=== PATIENT | female | born 1990 | race Hispanic/Latino ===

== ENCOUNTER → 2017-12-10 16:11 | Outpatient (CLI) | payer OTHER, MEDICAID, SELFPAY ==
[2017-12-10 17:47] LABS: Rubella Antibody IgG 4.7 IU/mL (>15)
[2017-12-14 15:24] LABS: Hepatitis B Surf Ab Qualitativ Nonreactive (Nonreactive)
[2017-12-17 13:57] LABS: Rapid Plasma Reagin NON-REACTIVE
== END ==
PROVIDERS: Family Provider Family Medicine; PCP Family Medicine; Visit Provider Specialist
DX: Z34.93 Encounter for supervision of normal pregnancy, unspecified, third trimester (principal)
CPT/HCPCS: 36415; 86592; 86706; 86762

== ENCOUNTER 2017-12-17 18:43 | Outpatient (CLI) | payer OTHER, MEDICAID, SELFPAY ==
[2017-12-17 19:50] LABS: Bacteria Urine None Seen
[2017-12-17 19:59] LABS: Appearance Urine UA CLEAR; Bilirubin Urine UA NEGATIVE (NEGATIVE); Color Urine UA YELLOW; Culture Indicated Urine Cult Not Indicated; Glucose Urine UA NEGATIVE (Normal); Ketones Urine UA TRACE (NEGATIVE); Leukocyte Esterase Urine UA NEGATIVE (NEGATIVE); Nitrite Urine UA Negative (Negative); Occult Blood Urine UA NEGATIVE (Negative); Protein Urine UA TRACE (Negative); RBC Urine 0-1/HPF (0-5/HPF); Urobilinogen Urine UA 0.2 E.U./dL (0.2); WBC Urine 0-1/HPF (0-5/HPF)
--- NOTE | 2017-12-18 11:25 | PM.OBTRLD ---
Visit Information Visit Information Date of evaluation: 12/17/17 Primary OB Provider: Ying Cagle Reason for Evaluation: Yes pre-term labor Vital Signs Vital Signs: Blood pressure 98/46, pulse of 82 PFSH Medical History Umbilical hernia (Chronic) Family History Grandfather Cancer Grandmother Cancer Mother Age: 59 Diabetes mellitus Grandmother Cancer of kidney Review of Systems Review of Systems Patient comes in complaining of pelvic pressure and discomfort lower abdomen. She has had good movement. No rupture of membranes. She does not feel like she is having contractions. No fevers. All systems reviewed & are unremarkable except as noted in HPI and below Exam Narrative Exam Narrative: Patient's abdomen is soft nontender. NST is reactive with baseline 130 category 1 tracing. No contractions are noted. Cervix is long, closed, and high. Objective Labs Labs: Laboratory Results - last 24 hr 12/17/17 19:40 Urine Color Yellow Urine Appearance Clear Urine pH 6.0 Ur Specific [place] 1.020 Urine Protein Trace H Urine Glucose (UA) Negative Urine Ketones Trace H Urine Occult Blood Negative Urine Nitrate Negative Urine Bilirubin Negative Urine Urobilinogen 0.2 Ur Leukocyte Esterase Negative Urine RBC 0-1/hpf Urine WBC 0-1/hpf Urine Bacteria None seen Ur Culture Indicated? Cult not indicated Micro UA Comment Not Reportable Evaluation Evaluation Laboratory results: Laboratory Tests 12/17/17 19:40 Urine Color Yellow Urine Appearance Clear Urine pH 6.0 Ur Specific [place] 1.020 Urine Protein Trace H Urine Glucose (UA) Negative Urine Ketones Trace H Urine Occult Blood Negative Urine Nitrate Negative Urine Bilirubin Negative Urine Urobilinogen 0.2 Ur Leukocyte Esterase Negative Urine RBC 0-1/hpf Urine WBC 0-1/hpf Urine Bacteria None seen Ur Culture Indicated? Cult not indicated Micro UA Comment Not Reportable Diagnosis, Plan/Disposition Final Diagnosis (1) Feeling pelvic pressure during in third trimester, antepartum: Current Visit: No Status: Acute Plan/Disposition Plan: Reassurance there is no evidence of premature labor. Patient is to rest, drink a lot of fluids and follow up at her routine OB appointment. OB Disposition: home
== END 2017-12-17 20:10 | disposition home or self-care (01) ==
LOC: OB 12-21 07:27
PROVIDERS: Family Provider Family Medicine; PCP Family Medicine; Visit Provider Specialist
DX: O26.893 Other specified pregnancy related conditions, third trimester (principal); Z3A.34 34 weeks gestation of pregnancy; R10.2 Pelvic and perineal pain
CPT/HCPCS: 59025; 81001; G0378; G0379

== ENCOUNTER 2017-12-21 19:16 | Outpatient (CLI) | payer OTHER, MEDICAID, SELFPAY | END 2017-12-21 20:20 | disposition home or self-care (01) | LOC: OB 12-24 10:12 | PROVIDERS: Family Provider Family Medicine; PCP Family Medicine | DX: Z34.83 Encounter for supervision of other normal pregnancy, third trimester (principal); Z3A.35 35 weeks gestation of pregnancy | CPT/HCPCS: 59025; 84112; G0378; G0379 ==

== ENCOUNTER → 2017-12-23 15:50 | Outpatient (CLI) | payer OTHER, MEDICAID, SELFPAY ==
[2017-12-24 17:04] LABS: Strep Grp B PCR NEG for Grp B Strep
== END ==
PROVIDERS: Family Provider Family Medicine; PCP Family Medicine; Visit Provider Specialist
DX: Z34.83 Encounter for supervision of other normal pregnancy, third trimester (principal); Z3A.35 35 weeks gestation of pregnancy
CPT/HCPCS: 87653

== ENCOUNTER 2018-01-01 13:54 | Outpatient (CLI) | payer OTHER, MEDICAID, SELFPAY ==
[2018-01-01 14:27] LABS: RBC Urine None Seen (0-5/HPF)
[2018-01-01 14:28] LABS: Appearance Urine UA SL CLOUDY; Bilirubin Urine UA NEGATIVE (NEGATIVE); Color Urine UA YELLOW; Glucose Urine UA NEGATIVE (Normal); Ketones Urine UA NEGATIVE (NEGATIVE); Leukocyte Esterase Urine UA 1+ (NEGATIVE); Nitrite Urine UA Negative (Negative); Occult Blood Urine UA NEGATIVE (Negative); Protein Urine UA NEGATIVE (Negative); Urobilinogen Urine UA 0.2 E.U./dL (0.2); pH Urine UA 6.5 (4.5-8.0)
[2018-01-01 14:46] LABS: WBC Urine 0-1/HPF (0-5/HPF)
[2018-01-01 14:47] LABS: Bacteria Urine Moderate (10-30); Culture Indicated Urine Specimen Cultured; Squamous Epithelial Cell Urine 1-5 /HPF
--- NOTE | 2018-01-01 15:01 | PM.OBTRLD ---
Visit Information Visit Information Date of evaluation: 01/01/18 Primary OB Provider: Ying Cagle Reason for Evaluation: Yes rule out labor Vital Signs Vital Signs: 115/ 67, pulse 114, temperature 97.3? PFSH Medical History Umbilical hernia (Chronic) Normal Papanicolaou smear (Resolved) Surgical History No history of previous surgery (Resolved 02/2016) Review of Systems Review of Systems Patient complaining of low back pain and contractions every 5 min. No leakage of fluid. All systems reviewed & are unremarkable except as noted in HPI and below Objective Labs Labs: Laboratory Results - last 24 hr 01/01/18 14:15 Urine Color Yellow Urine Appearance Sl cloudy Urine pH 6.5 Ur Specific [place] 1.020 Urine Protein Negative Urine Glucose (UA) Negative Urine Ketones Negative Urine Occult Blood Negative Urine Nitrate Negative Urine Bilirubin Negative Urine Urobilinogen 0.2 Ur Leukocyte Esterase 1+ H Urine RBC None seen Urine WBC 0-1/hpf Ur Squamous Epith Cells 1-5 /hpf Urine Bacteria Moderate (10-30) H Ur Culture Indicated? Specimen cultured Micro UA Comment Not Reportable Evaluation Evaluation Baseline heart rate: 140 Variability: Moderate (11-25) monitor accelerations: Present monitor decelerations: Absent Contraction Frequency (minutes): 5 Uterine Contraction Intensity: Mild Category of Tracing: I Cervical dilation (cm): 1 Cervical effacement (%): 50 station: -2 Laboratory results: Laboratory Tests 01/01/18 14:15 Urine Color Yellow Urine Appearance Sl cloudy Urine pH 6.5 Ur Specific [place] 1.020 Urine Protein Negative Urine Glucose (UA) Negative Urine Ketones Negative Urine Occult Blood Negative Urine Nitrate Negative Urine Bilirubin Negative Urine Urobilinogen 0.2 Ur Leukocyte Esterase 1+ H Urine RBC None seen Urine WBC 0-1/hpf Ur Squamous Epith Cells 1-5 /hpf Urine Bacteria Moderate (10-30) H Ur Culture Indicated? Specimen cultured Micro UA Comment Not Reportable Diagnosis, Plan/Disposition Final Diagnosis (1) 36 weeks gestation of : Current Visit: No Status: Acute (2) Feeling pelvic pressure during in third trimester, antepartum: Current Visit: No Status: Acute (3) Encounter for supervision of other normal , third trimester: Current Visit: No Status: Acute Plan/Disposition Plan: Patient with no evidence of active labor. She is discharged home with precautions of returning for increase labor pains, of rupture membranes, concerns.
== END 2018-01-01 15:02 | disposition home or self-care (01) ==
LOC: OB 01-03 14:42
PROVIDERS: Family Provider Family Medicine; PCP Family Medicine; Visit Provider Specialist
DX: Z34.93 Encounter for supervision of normal pregnancy, unspecified, third trimester (principal); Z3A.36 36 weeks gestation of pregnancy
CPT/HCPCS: 59025; 81001; 87086; G0378; G0379

== ENCOUNTER → 2018-01-05 15:31 | Outpatient (CLI) | payer OTHER, MEDICAID, SELFPAY ==
[2018-01-07 19:39] LABS: HIV Ag/Ab, 4th Gen Nonreactive (Nonreactive)
== END ==
PROVIDERS: Family Provider Family Medicine; PCP Family Medicine; Visit Provider Specialist
DX: Z34.83 Encounter for supervision of other normal pregnancy, third trimester (principal); Z3A.37 37 weeks gestation of pregnancy
CPT/HCPCS: 36415; 86703

== ENCOUNTER 2018-01-09 00:34 | Outpatient (CLI) | payer OTHER, MEDICAID, SELFPAY ==
[2018-01-09 02:03] VITALS: BP 113/62; PULSE 76; RESP 16; TEMP 36.1
== END 2018-01-09 01:54 | disposition home or self-care (01) ==
LOC: OB 01-10 15:23
PROVIDERS: Family Provider Family Medicine; PCP Family Medicine; Visit Provider Obstetrics & Gynecology
DX: Z34.83 Encounter for supervision of other normal pregnancy, third trimester (principal); Z3A.37 37 weeks gestation of pregnancy
CPT/HCPCS: 59025; 59050; G0378; G0379

== ENCOUNTER 2018-01-18 10:11 | Outpatient (CLI) | payer OTHER, MEDICAID, SELFPAY | END 2018-01-18 11:43 | disposition home or self-care (01) | LOC: LABOR 11:14 → OB 01-20 14:45 | PROVIDERS: Family Provider Family Medicine; PCP Family Medicine; Visit Provider Specialist | DX: Z03.71 Encounter for suspected problem with amniotic cavity and membrane ruled out (principal); Z3A.39 39 weeks gestation of pregnancy | CPT/HCPCS: 59025; 84112; G0378; G0379 ==

== ENCOUNTER 2018-01-21 09:47 | Inpatient (IN) | payer OTHER, MEDICAID, SELFPAY ==
--- NOTE | 2018-01-21 10:41 | PM.OBHP.1 ---
OB HPI Date/Time Date of admission: 01/21/18 Date Patient Seen: 01/21/18 Time Patient Seen: 10:41 History of Present Illness Chief complaint: OBS : 4 Para: 3 Estimated Date of Delivery: 01/25/18 Estimated Gestational Age (weeks): 39 Narrative: Kiya Godinez is a 27 year old female admitted for AROM and Pitocin induction for advanced cervical dilation Indications Indication for induction OB: history of rapid labor History of Present care: good care Dating criteria: LMP confirmed by 1st trimester US Obstetrical complications: none Medical complications: none Preadmission Labs Blood type: A (+) positive -: Antibody screen: negative, GBS status: negative, HBsAG: negative, HIV: negative and RPR/VDLR: negative -: Chlamydia screen: not detected and Gonorrhea screen: not detected -: Rubella: not immune HCAB: negative PAP: Normal Evaluation Evaluation Baseline heart rate: 140 Variability: Moderate (11-25) monitor accelerations: Present monitor decelerations: Absent Category of Tracing: I Cervical dilation (cm): 5 Cervical effacement (%): 80 station: -2 [facility] Medical History depression (Resolved) Umbilical hernia (Chronic) Normal Papanicolaou smear (Resolved) Surgical History No history of previous surgery (Resolved 02/2016) Family History Grandfather Cancer Grandmother Cancer Mother Age: 59 Diabetes mellitus Grandmother Cancer of kidney Social History Smoking Status: Never smoker Meds Home Medications Medication Instructions Recorded Confirmed Type 1 tab PO DAILY 12/17/17 01/09/18 History oxycodone-acetaminophen 5 mg-325 1 tab PO Q4-6H PRN #10 tab 01/18/18 Rx mg tablet Allergies Allergy/AdvReac Type Severity Reaction Status Date / Time Penicillins [PENICILLINS] Allergy Mild HIVES Verified 12/17/17 20:15 Review of Systems Review of Systems Patient denies headaches, scotoma, epigastric pain. Baby has been moving well. No contractions or rupture of membranes. All systems reviewed & are unremarkable except as noted in HPI and below Exam Vital Signs (past 8 hours): Blood pressure 107/67, pulse of 107, temperature 36.1? Narrative Exam Narrative: HEENT exam within normal limits. Heart is regular rate and rhythm no S3-S4 or murmurs. Lungs are clear to auscultation and percussion. Abdomen is soft with fundal height of 39cm. Objective Labs Result Diagrams: 01/21/18 10:25 Assessment and Plan (1) Encounter for supervision of other normal , third trimester: Current visit: No Status: Acute (2) 39 weeks gestation of : Current visit: Yes Status: Acute Plan: Plan: 39 week gestation with advanced cervical dilation and history of fast labors here for induction.
[2018-01-21 10:46] LABS: Add Manual Diff / Slide Review NO; Basophils Percent Auto 0.6 % (0-2); Eosinophils Percent Auto 0.3 % (2-4); Hematocrit 39.1 % (36-46); Lymphocytes Percent Auto 10.1 % (25-40); Mean Corpuscular HGB Conc 33.3 % (30-36); Mean Corpuscular Hemoglobin 29.7 PG (26-34); Mean Corpuscular Volume 89.2 fL (80-100); Monocytes Percent Auto 6.3 % (3-14); Neutrophils Absolute Auto 10100 /uL (3000-5900); Neutrophils Percent Auto 82.7 % (50-75); Platelet Count 143 X10^3/uL (150-400); Red Blood Cell Count 4.38 X10^6/uL (4.0-5.2); Red Cell Distribution Width 14.7 % (11.6-14.8); White Blood Cell Count 12.2 X10^3/uL (4.5-11.0)
[2018-01-21 10:56] VITALS: BP 107/67
[2018-01-21] MEDS: LACTATED RINGERS 1,000 ML 100 ML IV ×2 (10:58→13:08)
[2018-01-21] MEDS: OXYTOCIN PREMIX 30 UNIT/500 ML PLAST..BAG IV (10:58)
--- NOTE | 2018-01-21 16:23 | P.PCNOB_ITS ---
Events: Labor Induction (Advanced cervical dilation with fast labors) Delivery date: 01/21/18 Induction method: per pitocin protocol Delivery monitor: external FHT and external uterine Route of delivery: Laceration description: None Estimated blood loss (mL): 450 Anesthesia type: Epidural Narrative: Patient arrived on Labor and delivery for induction for maternal discomfort, advanced cervical dilation, history of fast labors. She arrived on Labor and delivery and was begun on Pitocin and the round for clear fluid. She received an epidural catheter for pain control. heart tones remained reassuring throughout labor. The baby delivered spontaneously over an intact perineum was placed immediately on the maternal abdomen. After the cord stopped pulsating the cord was clamped cut and cord bloods obtained. There are no cervical, vaginal or perineal tears. The placenta delivered spontaneously, intact, with three-vessels. Estimated blood loss 450 cc. Both and mother doing well. [place] Baby 1: Infant gender: Female Presentation: vertex Placenta delivery description: Spontaneous cord vessel description: 3 Vessels score (1 min): 9 score (5 min): 9 Narrative: Baby weighed 8 lb 13 oz, 4013 g Plan for aftercare: Routine care.
[2018-01-21] MEDS: miSOPROStol 200 MCG TABLET 800 MCG PR (16:55)
[2018-01-21] MEDS: METHYLERGONOVINE 0.2 MG/ML VIAL IM (16:55)
--- NOTE | 2018-01-21 16:55 | PM.PN.1 ---
Subjective Date Patient Seen: 01/21/18 Time Patient Seen: 16:55 Interval history: Patient with continued bleeding post delivery. Patient uterus becomes boggy then she passes clots with fundal massage. Patient received Pitocin bolus, Methergine IV, and perirectal 800 mg Cytotec. Exam Vital Signs (past 8 hours): - 01/21/18 10:56 Blood Pressure 107/67 Objective Labs Result Diagrams: 01/21/18 10:25 Labs: Laboratory Results - last 24 hr 01/21/18 01/21/18 10:25 10:25 WBC 12.2 H RBC 4.38 Hgb 13.0 Hct 39.1 MCV 89.2 MCH 29.7 MCHC 33.3 RDW 14.7 Plt Count 143 L Neut % (Auto) 82.7 H Lymph % (Auto) 10.1 L [place] % (Auto) 6.3 Eos % (Auto) 0.3 L Baso % (Auto) 0.6 Neut # (Auto) 22946 H Blood Type A Positive Antibody Screen Negative Assessment & Plan (1) hemorrhage, delivered, current hospitalization: Current visit: Yes Status: Acute Plan: Assessment/Plan Narrative: Patient with hemorrhage from uterine atony. Patient was treated with utero tonics. She will be monitored for additional need for treatment.
--- NOTE | 2018-01-21 16:59 | P.PN_ITS ---
Subjective Date Patient Seen: 01/21/18 Time Patient Seen: 16:55 Interval history: Patient with continued bleeding post delivery. Patient uterus becomes boggy then she passes clots with fundal massage. Patient received Pitocin bolus, Methergine IV, and perirectal 800 mg Cytotec. Exam Vital Signs (past 8 hours): - 01/21/18 10:56 Blood Pressure 107/67 Objective Labs Result Diagrams: 01/21/18 10:25 Labs: Laboratory Results - last 24 hr 01/21/18 01/21/18 10:25 10:25 WBC 12.2 H RBC 4.38 Hgb 13.0 Hct 39.1 MCV 89.2 MCH 29.7 MCHC 33.3 RDW 14.7 Plt Count 143 L Neut % (Auto) 82.7 H Lymph % (Auto) 10.1 L [place] % (Auto) 6.3 Eos % (Auto) 0.3 L Baso % (Auto) 0.6 Neut # (Auto) 24109 H Blood Type A Positive Antibody Screen Negative Assessment & Plan (1) hemorrhage, delivered, current hospitalization: Current visit: Yes Status: Acute Plan: Assessment/Plan Narrative: Patient with hemorrhage from uterine atony. Patient was treated with utero tonics. She will be monitored for additional need for treatment.
[2018-01-21 17:37] VITALS: BP 107/67
[2018-01-21] MEDS: METHYLERGONOVINE 0.2 MG TABLET PO (23:00)
[2018-01-22] MEDS: IBUPROFEN 600 MG TABLET PO ×3 (00:52→13:40)
[2018-01-22] MEDS: HYDROCODONE/ACET 5/325 TABLET 2 TAB PO ×3 (01:47→13:40)
[2018-01-22 05:39] LABS: Hematocrit 31.1 % (36-46); Hemoglobin 10.5 g/dL (12.0-16.0)
[2018-01-22] MEDS: DOCUSATE 250 MG CAPSULE PO (08:59)
[2018-01-22] MEDS: METHYLERGONOVINE 0.2 MG TABLET PO (08:59)
--- NOTE | 2018-01-22 11:50 | PM.OBDS.1 ---
Discharge Providers Date of admission: 01/21/18 10:38 Primary care physician: Maryam Mora DO Consults: 01/21/18 17:01 Consult to [employer] Routine Comment: Discharge provider: Ying Cagle MD Summary Date Patient Seen: 01/22/18 Time Patient Seen: 11:51 Hospital Course: Patient was admitted for induction for advanced cervical dilation and fast labors. She received an epidural catheter for pain control. She had a spontaneous vaginal delivery without tears. She did have a hemorrhage but is not significantly anemic . Patient has no signs or symptoms of preeclampsia. Her vital signs are stable. Uterus is involuting well and nontender. Extremities without edema nontender. Peripartum Data Infant Delivery Method: Natural Vaginal Laceration description: None Procedures: Epidural catheter, vaginal delivery complications: uterine atony Discharge Diagnosis (1) (normal spontaneous vaginal delivery): Status: Acute (2) hemorrhage, delivered, current hospitalization: Status: Acute Status at Discharge Functional status at discharge: independent ambulation Overall status at discharge: patient is progressing back to baseline Time Spent with Patient Total time spent providing and/or coordinating discharge services: Less than 30 minutes Objective Labs Result Diagrams: 01/22/18 04:50 Labs: Laboratory Results - last 24 hr 01/22/18 04:50 Hgb 10.5 L Hct 31.1 L Discharge Plan Discharge Plan Patient Disposition: Home, Self-Care Discharge Med Rec/Prescriptions Prescriptions: New hydrocodone-acetaminophen 5-325 mg Tablet 2 tab PO Q4HR Qty: 20 RF: 0 ibuprofen 600 mg Tablet 600 mg PO Q6HR PRN (Reason: Pain, Mild (1-3)) Qty: 30 RF: 0 docusate sodium 250 mg Capsule 250 mg PO DAILY Qty: 20 RF: 0 Continue 1 tab tablet 1 tab PO DAILY RF: 0 Discontinued oxycodone-acetaminophen 5-325 mg tablet 1 tab PO Q4-6H PRN (Reason: pain) Qty: 10 RF: 0 Provider Discharge Instructions Diet: Regular Skin/Wound/Dressing Care Report to your healthcare provider any signs of infection, such as:: chills, fever and increased pain Discharge Data Primary Care Provider: Maryam Mora Attending Provider: Ying Cagle Admit Date/Time: 01/21/18 10:38
[2018-01-22] MEDS: MEASLES,MUMPS,RUBELLA VACC/PF 0.5 ML VIAL SUBCUT (13:38)
[2018-01-22 15:49] VITALS: BP 107/67
== END 2018-01-22 15:50 | disposition home or self-care (01) | DRG 542 ==
PROVIDERS: Admitting Provider Specialist; Family Provider Family Medicine; PCP Family Medicine; Visit Provider Specialist
DX: O75.89 Other specified complications of labor and delivery (principal); Z3A.39 39 weeks gestation of pregnancy; Z37.0 Single live birth; O72.1 Other immediate postpartum hemorrhage
CPT/HCPCS: 01967; 36415; 59050; 59409; 85014; 85018; 85025; 86850; 86900; 86901; G0378; G0379; J2210; J2590; S0191

== ENCOUNTER → 2018-01-26 15:23 | Outpatient (CLI) | payer OTHER, MEDICAID, SELFPAY ==
[2018-01-26 15:37] LABS: Bacteria Urine None Seen
[2018-01-26 16:23] LABS: Appearance Urine UA CLOUDY; Bilirubin Urine UA NEGATIVE (NEGATIVE); Color Urine UA YELLOW; Glucose Urine UA NEGATIVE (Normal); Ketones Urine UA NEGATIVE (NEGATIVE); Leukocyte Esterase Urine UA TRACE (NEGATIVE); Nitrite Urine UA Negative (Negative); Occult Blood Urine UA 3+ (Negative); Protein Urine UA 2+ (Negative); Specific Gravity Urine UA 1.025 (1.000-1.035); Urobilinogen Urine UA 0.2 E.U./dL (0.2)
[2018-01-26 16:34] LABS: Culture Indicated Urine Specimen Cultured; RBC Urine 5-10/HPF (0-5/HPF); WBC Urine 10-30/HPF (0-5/HPF)
== END ==
PROVIDERS: Family Provider Family Medicine; PCP Family Medicine; Visit Provider Specialist
DX: R30.0 Dysuria (principal)
CPT/HCPCS: 81001; 87077; 87086; 87186

== ENCOUNTER → 2018-09-15 10:24 | Outpatient (CLI) | payer OTHER, MEDICAID, SELFPAY ==
--- NOTE | 2018-09-15 10:33 | DI.CT.S_ITS ---
PROCEDURE: CT ABDOMEN WO CON INDICATIONS: Rule out hernia above umbilicus TECHNIQUE: After the administration of oral contrast, 5 mm thick sections acquired from the diaphragms to the iliac crests. 5 mm coronal and sagittal reformats were then performed. For radiation dose reduction, the following was used: automated exposure control, adjustment of mA and/or kV according to patient size. COMPARISON: None. FINDINGS: Image quality: Excellent. Lung bases: There is a 3 mm noncalcified pulmonary nodule in the posterior right lower lobe on axial image 2 of series 3, likely postinfectious/inflammatory in a patient of this age. Heart size is normal. Solid organs: Liver is normal in size. Gallbladder is unremarkable. Pancreas is normal in contours. Spleen is normal in size. No adrenal nodules. Both kidneys are normal in size, without hydronephrosis or nephrolithiasis. Peritoneum and bowel: Bowel loops demonstrate normal wall thickness and caliber. No free fluid or air. Nodes and vessels: No retroperitoneal or mesenteric adenopathy by size criteria. Aorta and inferior vena cava are normal in size. Bones: No suspicious bony lesions. No vertebral body compression fractures. Miscellaneous: There is a 2.3 cm anteroposterior by 2.8 cm mediolateral by 3.2 cm craniocaudal fat-containing supraumbilical hernia just superior to the umbilicus along the anterior abdominal with small hernia defect measuring 0.6 cm in size. There is no significant fluid or fat stranding within the hernia sac to suggest incarceration/fat injury. IMPRESSION: 3.2 cm fat-containing ventral abdominal wall hernia located immediately superior to the umbilicus. Dictated by: Gary Ríos M.D. on 09/15/2018 at 14:39 Approved by: Gary Ríos M.D. on 09/15/2018 at 14:56
== END ==
PROVIDERS: Family Provider Family Medicine; PCP Family Medicine; Visit Provider Specialist
DX: K43.9 Ventral hernia without obstruction or gangrene (principal)
CPT/HCPCS: 74150

== ENCOUNTER → 2018-10-31 10:55 | Outpatient (CLI) | payer OTHER, MEDICAID, SELFPAY | PROVIDERS: Family Provider Family Medicine; PCP Family Medicine; Visit Provider Physician Assistant | DX: R30.0 Dysuria (principal) | CPT/HCPCS: 87077; 87086; 87186 ==

== ENCOUNTER 2018-11-24 13:43 | Day surgery (SDC) | payer OTHER, MEDICAID, SELFPAY ==
[2018-11-21 13:32] VITALS: BMI 32.3
[2018-11-24] VITALS (10 sets, daily range): BP systolic 101–108; BP diastolic 65–75; PULSE 74–97; RESP 11–19; TEMP 36.2–36.8; O2SAT 94–98; BMI 32.3
--- NOTE | 2018-11-24 14:13 | PM.PREOP ---
Pre-operative Note Interval Note History & Physical reviewed/Exam performed by Physician: Yes Changes to H&P: No
[2018-11-24] MEDS: LACTATED RINGERS 1,000 ML 42 ML IV ×2 (14:18→15:52)
[2018-11-24] MEDS: CLINDAMYCIN 900 MG/50 ML PIGGYBACK 50 MG IV (14:42)
--- NOTE | 2018-11-24 15:05 | SUR.OPER ---
Supine on padded OR bed, head on pillow, arms secured on padded arm boards at <90 degrees abduction, legs uncrossed, safety belt at thigh, tape over blanket over lower legs.
[2018-11-24] MEDS: BUPIVACAINE 0.5% (PF) VIAL 30 ML INJ (15:09)
[2018-11-24] MEDS: fentaNYL 100 MCG/2 ML INJ 50 MCG IV ×2 (16:23→16:27)
--- NOTE | 2018-11-24 16:34 | P.OP_ITS ---
Operative Date/Time/Diagnoses Date of procedure: 11/24/18 Time of procedure: 16:04 Pre-op diagnosis: Recurrent umbilical hernia Post-op diagnosis: same Procedure & Clinicians Procedure: Repair with underlay of mesh Same procedure as scheduled: Yes Indications: Symptomatic recurrence of a hernia. First repair was done prior to her last . She recurred with her last Surgeon: Jean Paul Pemberton Click Yes if Unassisted: Yes Anesthesia Type: General Operative Notes Findings: Small defect containing fat Closure Type: primary Specimen(s): none sent Prosthetic devices, grafts, tissues, transplants, or devices: 1.7 in circular mesh applied under the fascia Estimated Blood Loss (mL): 10 Blood products transfused: none Procedure in detail: Patient is placed supine on the operating table underwent general LMA anesthesia. She was prepped and draped in the usual fashion. Local anesthetic was infiltrated and a curvilinear incision made through the scar from her prior repair. Was carried down to the base of the fat on the fascia. The fat was from surrounding structures and the fascial edge cleared. I removed a portion of the fat because it was too large to reduce through the very small opening. I then dissected the fat under the hernia off the abdominal wall and cleaned the fascial edge of tissue. I placed a 1.7 in circular mesh under the fascia and then closed the fascia with 0 Ethibond interrupted sutures. The tails were incorporated into the repair. The distal portion of the tails were removed. The there appeared to be adequate. The subcu was closed with i nterrupted 3 Vicryl after tacking the umbilicus down to the fascia. Skin was closed running 4 0 Vicryl subcuticular stitch and Steri-Strips. A single 4 0 nylon was placed in the left lateral aspect of the incision as there was a small skin who is order. Complications: none Condition: stable Disposition: PACU Plan for aftercare: Follow-up in the office
[2018-11-24] MEDS: HYDROMORPHONE 2 MG INJ 0.5 MG IV ×2 (16:38→16:47)
[2018-11-24] MEDS: KETOROLAC 30 MG/ML VIAL IV (16:40)
--- NOTE | 2018-11-24 16:52 | SUR.PHASEI ---
Pt relaxing a bit, less teary.
--- NOTE | 2018-11-24 19:20 | SUR.PHASEII ---
c/o nausea w movement on way out to private vehicle. returned to department. given sip of cool H20, quesease inhalation packet, cool washcloth and emesis bag . pt felt much better after 5 minutes and was able to dc to home
== END 2018-11-24 18:15 | disposition home or self-care (01) ==
PROVIDERS: Family Provider Family Medicine; PCP Family Medicine; Visit Provider Specialist
PROC: (CPT 49585; principal; 2018-11-24 14:45)
DX: K42.9 Umbilical hernia without obstruction or gangrene (principal)
CPT/HCPCS: 49585; C1781; J1100; J1170; J1885; J2250; J2405; J2704; J3010

== ENCOUNTER → 2019-03-11 09:24 | Outpatient (CLI) | payer OTHER, MEDICAID, SELFPAY ==
[2019-03-11 11:10] LABS: Cholesterol 174 mg/dL (140-199); HDL Cholesterol 55 mg/dL (40-60); LDL Cholesterol Calculated 105 mg/dL (<100); Triglycerides 71 mg/dL (35-150)
== END ==
PROVIDERS: PCP Family Medicine; Visit Provider Family Medicine
DX: Z00.00 Encounter for general adult medical examination without abnormal findings (principal)
CPT/HCPCS: 36415; 80061; 83036

== ENCOUNTER → 2019-12-11 12:15 | Outpatient (CLI) | payer OTHER, MEDICAID, SELFPAY | PROVIDERS: Visit Provider Physician Assistant | DX: R30.0 Dysuria (principal) | CPT/HCPCS: 87077; 87086; 87186 ==

== ENCOUNTER → 2020-08-13 11:06 | Outpatient (CLI) | payer OTHER, MEDICAID, SELFPAY ==
--- NOTE | 2020-08-13 11:09 | DI.RAD.S_ITS ---
PROCEDURE: XR ANKLE LT MIN 3V INDICATIONS: left ankle pain TECHNIQUE: 3 views of the ankle were acquired. COMPARISON: None. FINDINGS: Bones: No acute fractures or dislocations. Corticated ossification noted distal to the tip of the fibula is compatible with a chronic process. Ankle mortise is normally aligned. No suspicious bony lesions. Soft tissues: No tibiotalar joint effusion. Achilles tendon appears normal. There is lateral malleolar soft tissue edema. IMPRESSION: Lateral malleolar soft tissue swelling without underlying fracture or dislocation. If there is persistent clinical concern for occult fracture given adequate mechanism of injury, consider repeat imaging in 10-14 days. Dictated by: Calvin Vyas M.D. on 08/13/2020 at 11:38 Approved by: Calvin Vyas M.D. on 08/13/2020 at 11:44
== END ==
PROVIDERS: PCP Family Medicine; Referring Provider Physician Assistant; Visit Provider Physician Assistant
DX: M25.572 Pain in left ankle and joints of left foot (principal); M79.89 Other specified soft tissue disorders
CPT/HCPCS: 73610

== ENCOUNTER 2021-05-06 19:14 | Emergency (ER) | payer OTHER, MEDICAID, SELFPAY ==
[2021-05-06 20:01] VITALS: BP 122/57; PULSE 72; RESP 18; TEMP 36.6; O2SAT 100
--- NOTE | 2021-05-06 20:19 | DI.US.S_ITS ---
PROCEDURE: US OB <= 14 WEEKS FETUS INDICATIONS: BLEEDING OUTSIDE/PRIOR DATING DATA: Last menstrual period (LMP): 03/23/2021 LMP-based estimated date of delivery (DORIS): 12/28/2021 First dating scan (date and location): 05/06/2021 Estimated date of delivery (DORIS) from first dating scan: 12/29/2021. TECHNIQUE: Real-time scanning was performed of the fetus and maternal pelvic organs, with image documentation. Endovaginal scanning was also performed to better visualize the fetus and maternal ovaries. COMPARISON: None. FINDINGS: Embryo: Intrauterine gestational sac is identified measuring 1.3 cm corresponding to 6 weeks 1 day. No pole is identified. Yolk sac is present. Heart rate: Not applicable Maternal organs: Ovaries right ovarian cyst is noted likely corpus luteal cyst.. IMPRESSION: 1. Single intrauterine gestational sac with ultrasound gestational age of 6 weeks 1 day. No pole or heart tones are identified. Recommend short interval imaging follow-up with correlation to beta HCG levels to evaluate progression normal or potentially blighted ovum We strive to produce accurate, complete, and clear reports of imaging services. To assist us in improving patient care, this report was composed using standard report templates and voice recognition software. Therefore, it may contain abnormal punctuation, insertions and/or omissions. Occasional wrong-word or sound-alike substitutions may occur. Though we review the report and make efforts to correct it, we do recommend that the report be read carefully in proper context to recognize any text inaccuracies. Dictated by: Roslyn Bender M.D. on 05/06/2021 at 21:33 Approved by: Roslyn Bender M.D. on 05/06/2021 at 21:35
[2021-05-06 20:51] LABS: Add Manual Diff / Slide Review NO; Basophils Absolute Auto 100 /uL (0-100); Basophils Percent Auto 0.6 % (0-2); Eosinophils Absolute Auto 100 /uL (0-450); Eosinophils Percent Auto 0.6 % (2-4); Hematocrit 38.3 % (36-46); Hemoglobin 12.7 g/dL (12.0-16.0); Lymphocytes Absolute Auto 2200 /uL (1100-4500); Lymphocytes Percent Auto 19.8 % (25-40); Mean Corpuscular HGB Conc 33.1 % (30-36); Mean Corpuscular Hemoglobin 29.3 PG (26-34); Mean Corpuscular Volume 88.5 fL (80-100); Monocytes Absolute Auto 700 /uL (0-900); Monocytes Percent Auto 6.1 % (3-14); Neutrophils Absolute Auto 8100 /uL (1500-7000); Neutrophils Percent Auto 72.9 % (50-75); Platelet Count 224 X10^3/uL (150-400); Red Blood Cell Count 4.32 X10^6/uL (4.0-5.2); Red Cell Distribution Width 13.3 % (11.6-14.8); White Blood Cell Count 11.1 X10^3/uL (4.5-11.0)
[2021-05-06 21:06] LABS: Alanine Aminotransferase 33 IU/L (<35); Albumin 4.7 g/dL (3.5-5.0); Albumin Globulin Ratio 1.4 (1.0-2.8); Alkaline Phosphatase 49 U/L (38-126); Aspartate Aminotransferase 22 IU/L (14-36); BUN Creatinine Ratio 19.7 (6-22); Bilirubin Total 0.4 mg/dL (0.2-1.3); Blood Urea Nitrogen 15 mg/dL (7-17); Calcium 9.7 mg/dL (8.4-10.2); Carbon Dioxide 28 mmol/L (22-32); Chloride 102 mmol/L (98-107); Estimated Glomerular Filt Rate > 60.0 mL/min (>60); Globulin 3.3 g/dL (1.7-4.1); Glucose 102 mg/dL (70-100); HEMOLYSIS < 15 (0-50); Potassium 4.1 mmol/L (3.4-5.1); Sodium 139 mmol/L (137-145)
[2021-05-06 21:32] LABS: Bacteria Urine None Seen; Culture Indicated Urine Cult Not Indicated; RBC Urine 5-10/HPF (0-5/HPF); WBC Urine 0-1/HPF (0-5/HPF)
[2021-05-06 21:46] LABS: HCG Quantitative /Beta subunit 16180 mIU/mL
[2021-05-07 00:27] VITALS: BP 130/77; PULSE 90; RESP 16; O2SAT 99
--- NOTE | 2021-05-07 01:30 | ED.PREGNANCY ---
HPI - General Chief complaint: Vaginal Bleeding Stated complaint: < 20 wks , spotting Time Seen by Provider: 05/07/21 00:33 Source: patient Mode of arrival: Ambulatory Limitations: no limitations History of Present Illness HPI Narrative: Patient is a 30-year-old female G 5p4 presenting with vaginal bleeding. She says she took 6 home test her has had vasectomy they were not expecting to be . Today she had some light pink spotting when she wiped. She has no abdominal pain or cramping. She has not yet been seen for this . Her 1st appointment is June 02 the. No complications with previous pregnancies. She has some nausea no significant vomiting Related Data Previous Rx's Medication Instructions Recorded phenazopyridine 100 mg tablet 100 mg PO TID PRN 0 Days #6 tab 12/11/19 (Pyridium) Allergies Allergy/AdvReac Type Severity Reaction Status Date / Time Penicillins [PENICILLINS] Allergy Mild HIVES Verified 08/13/20 11:56 Review of Systems Review of Systems Narrative: GENERAL: Denies chills, fatigue, malaise, fever, sweats, travel HEENT: Denies sinus pain, ear pain, sore throat, difficulty swallowing, neck pain RESPIRATORY: Denies dyspnea, cough, wheezing, hemoptysis, sputum. CARDIOVASCULAR: Denies chest pain, palpitations, orthopnea, edema GASTROINTESTINAL: Denies nausea, vomiting, abdominal pain, diarrhea, constipation, melena. POLYSOMNOGRAPHY TECHNICIAN: See HPI : Denies dysuria, frequency, incontinence, hematuria, urinary retention, flank pain. MUSCULOSKELETAL: Denies weakness, joint pain, or bony pain SKIN: No rash, no erythema, no pruritus NEUROLOGIC: Denies weakness, dizziness, headache, numbness, change in speech, confusion PSYCHIATRIC: No concerning psychosocial issues. 12 point review of systems is negative except for those stated above and HPI Exam Initial Vital Signs Initial Vital Signs: Vital Signs Temperature 97.9 F 05/06/21 20:01 Pulse Rate 72 05/06/21 20:01 Respiratory Rate 18 05/06/21 20:01 Blood Pressure 122/57 L 05/06/21 20:01 Pulse Oximetry 100 05/06/21 20:01 GENERAL: 30-year-old female and in no acute distress. HEENT: Head atraumatic,EOMI, pupils reactive, face symmetric, moist mucous membranes CARDIOVASCULAR: Regular rate and rhythm without murmurs, rubs or gallops. RESPIRATORY: Breath sounds equal bilaterally, no wheezes rales or rhonchi. ABDOMEN: Soft, nontender. Normoactive bowel sounds all 4 quadrants. No guarding or rebound. EXTREMITIES: Normal range of motion, no clubbing or edema. Neurovascularly intact NEUROLOGICAL: Alert and oriented x4.Normal gait and speech. SKIN: Warm, dry, no laceration, no petechiae, no rashes or lesions. Course Orders Ordered: ED Orders 05/06/21 20:19 US OB <= 14 weeks fetus Stat 05/06/21 20:30 Complete Blood Count AUTO DIFF Stat Comprehensive Metabolic Panel Stat HCG Quantitative /Beta subunit Stat Urine Microscopic Stat Vital Signs Vital signs: Vital Signs - 8 hr 05/07/21 00:27 05/07/21 01:52 Pulse Rate 90 79 Respiratory Rate 16 17 Blood Pressure 130/77 122/66 Pulse Oximetry 99 99 MDM - OB/Uterine Contractions Lab Data Result diagrams: 05/06/21 20:30 05/06/21 20:30 Labs: Lab Results 05/06/21 05/06/21 05/06/21 Range/Units 20:30 20:30 20:30 WBC 11.1 H (4.5-11.0) X10^3/uL RBC 4.32 (4.0-5.2) X10^6/uL Hgb 12.7 (12.0-16.0) g/dL Hct 38.3 (36-46) % MCV 88.5 (80-100) fL MCH 29.3 (26-34) PG MCHC 33.1 (30-36) % RDW 13.3 (11.6-14.8) % Plt Count 224 (150-400) X10^3/uL Neut % (Auto) 72.9 (50-75) % Lymph % (Auto) 19.8 L (25-40) % [place] % (Auto) 6.1 (3-14) % Eos % (Auto) 0.6 L (2-4) % Baso % (Auto) 0.6 (0-2) % Neut # (Auto) 8100 H (1911-7909) /uL Lymph # (Auto) 2200 (6043-3862) /uL [place] # (Auto) 700 (0-900) /uL Eos # (Auto) 100 (0-450) /uL Baso # (Auto) 100 (0-100) /uL Sodium 139 (137-145) mmol/L Potassium 4.1 (3.4-5.1) mmol/L Chloride 102 (98-107) mmol/L Carbon Dioxide 28 (22-32) mmol/L BUN 15 (7-17) mg/dL Creatinine 0.76 (0.52-1.04) mg/dL Estimated GFR > 60.0 (>60) mL/min BUN/Creatinine Ratio 19.7 (6-22) Glucose 102 H (70-100) mg/dL Calcium 9.7 (8.4-10.2) mg/dL Total Bilirubin 0.4 (0.2-1.3) mg/dL AST 22 (14-36) IU/L ALT 33 (<35) IU/L Alkaline Phosphatase 49 (38-126) U/L Total Protein 8.0 (6.3-8.2) g/dL Albumin 4.7 (3.5-5.0) g/dL Globulin 3.3 (1.7-4.1) g/dL Albumin/Globulin Ratio 1.4 (1.0-2.8) HCG, Quant 25112 mIU/mL Urine RBC 5-10/hpf H (0-5/HPF) Urine WBC 0-1/hpf (0-5/HPF) Urine Bacteria None seen (None) Ur Culture Indicated? Cult not indicated Urine Dip Bedside Urine Glucose Negative Bedside Urine Bilirubin - Negative Bedside Urine Ketone - Negative Urine Specific Gill 1.025 Bedside Urine Occult Blood ++ Bedside Urine pH 6.0 Bedside Urine Protein - Negative Bedside Urine Urobilinogen - Negative Bedside Urine Nitrite - Negative Bedside Urine Leukocytes - Negative Esterase Imaging Data US - OB: Radiologist's Impression: PROCEDURE:? US OB <= 14 WEEKS FETUS ? INDICATIONS:? BLEEDING ? OUTSIDE/PRIOR DATING DATA:? Last menstrual period (LMP):? 03/23/2021 LMP-based estimated date of delivery (DORIS):? 12/28/2021 First dating scan (date and location):? 05/06/2021 Estimated date of delivery (DORIS) from first dating scan:? 12/29/2021. ? TECHNIQUE:? Real-time scanning was performed of the fetus and maternal pelvic organs, with image documentation.? Endovaginal scanning was also performed to better visualize the fetus and maternal ovaries.? ? COMPARISON:? None. ? FINDINGS:? ? Embryo:? Intrauterine gestational sac is identified measuring 1.3 cm corresponding to 6 weeks 1 day.? No pole is identified.? Yolk sac is present. Heart rate:? Not applicable ? Maternal organs:? Ovaries right ovarian cyst is noted likely corpus luteal cyst.. ? ? ? IMPRESSION:? ? 1. Single intrauterine gestational sac with ultrasound gestational age of 6 weeks 1 day.? No pole or heart tones are identified.? Recommend short interval imaging follow-up with correlation to beta HCG levels to evaluate progression normal or potentially blighted ovum ? We strive to produce accurate, complete, and clear reports of imaging services. To assist us in improving patient care, this report was composed using standard report templates and voice recognition software. Therefore, it may contain abnormal punctuation, insertions and/or omissions. Occasional wrong-word or sound-alike substitutions may occur. Though we review the report and make efforts to correct it, we do recommend that the report be read carefully in proper context to recognize any text inaccuracies. ? Dictated by: Roslyn Bender M.D. on 05/06/2021 at 21:33 ? ? MDM Narrative Medical decision making narrative: At this time ultrasound does not show heart tones at about 6 weeks. At this time possible missed. She. Recommend that she have repeat hCG drawn. Is currently quite elevated she but needs to be closely followed and monitored. I discussed this with her she understands and agrees. Discharge Plan Departure Patient Disposition: Home Clinical Impression: Threatened Instructions: DI for Threatened Activity Restrictions/Additional Instructions: [id number] *You have been diagnosed with threatened *What to do: You need to have repeat blood work in 2 days. Please call OBGYN tomorrow this should be able to be arranged as an outpatient. Ultrasound today showed 6 weeks and 1 day but no heart tone. This needs to be closely followed to determine if there is miscarriage *Continue to take medications as directed *Follow up with your primary care provider in 2-[address] Alexander office tomorrow to schedule for blood work follow-up appoint *Return to ER if you should have increasing abdominal pain, vaginal bleeding or any new, worsening or concerning symptoms Prescriptions: No Action phenazopyridine [Pyridium] 100 mg tablet 100 mg PO TID PRN (Reason: pain) 0 Days Qty: 6 0RF Referrals: Britany Alexander MD [Physician] - Maryam Mora DO [Primary Care Provider] -
[2021-05-07 01:52] VITALS: BP 122/66; PULSE 79; RESP 17; O2SAT 99
== END 2021-05-07 01:53 | disposition home or self-care (01) ==
PROVIDERS: Emergency Provider Emergency Medicine; PCP Family Medicine
DX: O20.0 Threatened abortion (principal); Z3A.01 Less than 8 weeks gestation of pregnancy
CPT/HCPCS: 36415; 76801; 76817; 80053; 81003; 81015; 84702; 85025; 99283; 99284

== ENCOUNTER → 2021-05-12 09:53 | Outpatient (CLI) | payer OTHER, MEDICAID, SELFPAY ==
[2021-05-12 13:01] LABS: HCG Quantitative /Beta subunit 34284 mIU/mL
== END ==
PROVIDERS: Obstetrics & Gynecology; PCP Family Medicine; Referring Provider Family Medicine; Visit Provider Family Medicine
DX: O20.0 Threatened abortion (principal)
CPT/HCPCS: 36415; 84702

== ENCOUNTER → 2021-06-02 14:58 | Outpatient (CLI) | payer OTHER, MEDICAID, SELFPAY ==
[2021-06-02 15:26] LABS: Add Manual Diff / Slide Review NO; Basophils Absolute Auto 100 /uL (0-100); Basophils Percent Auto 0.5 % (0-2); Eosinophils Absolute Auto 0 /uL (0-450); Eosinophils Percent Auto 0.1 % (2-4); Hemoglobin 12.9 g/dL (12.0-16.0); Lymphocytes Absolute Auto 1300 /uL (1100-4500); Mean Corpuscular HGB Conc 33.2 % (30-36); Mean Corpuscular Hemoglobin 29.5 PG (26-34); Mean Corpuscular Volume 88.9 fL (80-100); Monocytes Absolute Auto 400 /uL (0-900); Monocytes Percent Auto 3.4 % (3-14); Neutrophils Absolute Auto 9400 /uL (1500-7000); Platelet Count 200 X10^3/uL (150-400); Red Blood Cell Count 4.38 X10^6/uL (4.0-5.2); Red Cell Distribution Width 12.6 % (11.6-14.8); White Blood Cell Count 11.2 X10^3/uL (4.5-11.0)
[2021-06-02 15:46] LABS: Appearance Urine UA SL CLOUDY; Bilirubin Urine UA NEGATIVE (NEGATIVE); Color Urine UA YELLOW; Glucose Urine UA NEGATIVE (Negative); Ketones Urine UA 1+ (NEGATIVE); Leukocyte Esterase Urine UA NEGATIVE (NEGATIVE); Nitrite Urine UA NEGATIVE (Negative); Occult Blood Urine UA 2+ (Negative); Protein Urine UA TRACE (Negative); Specific Gravity Urine UA >=1.030 (1.000-1.035); Urobilinogen Urine UA 0.2 E.U./dL (0.2)
[2021-06-02 16:18] LABS: Amorphous Sediment Urine 1+; Bacteria Urine Occasional (0-1); Mucus Urine 2+ (Negative); RBC Urine 1-5/HPF (0-5/HPF); Squamous Epithelial Cell Urine 5-10 /HPF (0-5/HPF); Transitional Epi Cells Urine 5-10/HPF (0-5/HPF); WBC Urine 1-5/HPF (0-5/HPF)
[2021-06-02 21:40] LABS: Rubella Antibody IgG 9.6 IU/mL (>15)
[2021-06-02 21:53] LABS: HIV 1 & 2 Ab/Ag 4th Gen Combo NEGATIVE (NEGATIVE); Hep C Virus Ab w/Reflex Quant NEGATIVE s/c (NEGATIVE)
[2021-06-03 09:39] LABS: Varicella IgG Antibody 149 index (Immune >165)
[2021-06-05 17:53] LABS: Hepatitis B Surface Antigen NEGATIVE s/c (NEGATIVE)
[2021-06-26 12:54] LABS: RPR Quant + RPR Abs CONFIRMATORY TESTING
[2021-06-26 12:56] LABS: RPR Screen NON REACTIVE
== END ==
PROVIDERS: PCP Obstetrics & Gynecology; Referring Provider Obstetrics & Gynecology; Visit Provider Obstetrics & Gynecology
DX: Z34.81 Encounter for supervision of other normal pregnancy, first trimester (principal)
CPT/HCPCS: 36415; 80055; 81003; 81015; 86787; 86803; 86850; 86900; 86901; 87086; 87389

== ENCOUNTER → 2021-07-28 08:29 | Outpatient (CLI) | payer OTHER, MEDICAID, SELFPAY ==
[2021-08-01 12:32] LABS: AFP, Serum 46.6 ng/mL (.); Estriol, Free 1.41 ng/mL (.); Inhibin A, Dimeric 167.83 pg/mL (.); Inhibin A, MoM 1.25 (.); Maternal Ethnicity Other (.); Maternal Weight 201 lbs (.); Number of Fetuses Triplets or greater (.); OSBR Risk 1 IN See interpretation. (.); Results Report (.); Test Results See interpretation. (.); hCG, MoM 2.11 (.); hCG, Serum 50337 mIU/mL (.)
== END ==
PROVIDERS: PCP Family Medicine; Referring Provider Obstetrics & Gynecology; Visit Provider Obstetrics & Gynecology
DX: Z34.82 Encounter for supervision of other normal pregnancy, second trimester (principal); Z3A.18 18 weeks gestation of pregnancy
CPT/HCPCS: 36415; 82105; 82677; 84702; 86336

== ENCOUNTER → 2021-08-20 14:02 | Outpatient (CLI) | payer OTHER, MEDICAID, SELFPAY ==
--- NOTE | 2021-08-20 14:04 | DI.US.S_ITS ---
PROCEDURE: US OB >= 14 WEEKS FETUS INDICATIONS: ANATOMY OUTSIDE/PRIOR DATING DATA: Last menstrual period (LMP): 03/23/2021. LMP-based estimated date of delivery (DORIS): 12/28/2021 First dating scan (date and location): 05/06/2021 Estimated date of delivery (DORIS) from first dating scan: 12/29/2021. TECHNIQUE: Real-time scanning was performed of the fetus, with image documentation and biometric measurements. Endovaginal scanning: Not indicated COMPARISON: [facility], , OB <= 14 WEEKS FETUS, 06/30/2021, 9:00. [facility], , OB >= 14 WEEKS FETUS, 07/28/2021, 8:23. FINDINGS: General: A single living intrauterine gestation is present. Presentation: Vertex. Placenta: Placental position is posterior, without previa. Amniotic fluid index: 14.5 cm, normal range is 5-24 cm. Single deepest vertical pocket is 4.4 cm. heart rate: 136 beats per minute. Maternal cervical canal: 4.2 cm long. Normal lower limit is 2.5 cm. biometrics: Biparietal diameter: 5.2 cm, 21 weeks, 6 days. Head circumference: 19.2 cm, 21 weeks, 3 days. Abdominal circumference: 17.2 cm, 22 weeks, 1 day. Femur length: 3.6 cm, 21 weeks, 2 days. Clinically estimated gestational age: 21 weeks, 2 days. Composite gestational age from present scan: 21 weeks, 5 days. Estimated weight and percentile: 446 grams, 68 percent. Anatomic survey: Neuro: Ventricles are non-dilated at less than 10 mm. Cisterna magna is normal at 3-11 mm. Cerebellum is normal in size and morphology. Nuchal skin fold: Normal at less than 6 mm between 14-21 weeks gestational age. Face: Nose and lips, facial profile are normal. Spine: No evidence for spina bifida. Heart: 4-chambered heart is present, with normal ventricular outflow tracts. Diaphragm: Diaphragm is intact. Stomach: Left-sided stomach is present. Kidneys: No hydronephrosis. Normal is less than 5 mm in 2nd trimester, less than 7 mm in 3rd trimester. Cord: 3-vessel cord has orthotopic insertion. Bladder: Normal in size. Extremities: All 4 extremities identified. IMPRESSION: 1. Single live intrauterine gestation with fetus in vertex presentation. heart rate is 136 beats per minute. Normal amount of amniotic fluid. Normal growth. Estimated weight is at 68 percent. 2. Normal anatomic survey. We strive to produce accurate, complete, and clear reports of imaging services. To assist us in improving patient care, this report was composed using standard report templates and voice recognition software. Therefore, it may contain abnormal punctuation, insertions and/or omissions. Occasional wrong-word or sound-alike substitutions may occur. Though we review the report and make efforts to correct it, we do recommend that the report be read carefully in proper context to recognize any text inaccuracies. Dictated by: Richard Lange M.D. on 08/20/2021 at 15:49 Approved by: Richard Lange M.D. on 08/20/2021 at 15:53
== END ==
PROVIDERS: PCP Family Medicine; Referring Provider Obstetrics & Gynecology; Visit Provider Obstetrics & Gynecology
DX: Z34.82 Encounter for supervision of other normal pregnancy, second trimester (principal); Z3A.21 21 weeks gestation of pregnancy
CPT/HCPCS: 76811

== ENCOUNTER → 2021-09-23 09:52 | Outpatient (CLI) | payer OTHER, MEDICAID, SELFPAY ==
[2021-09-23 12:23] LABS: Hematocrit 35.7 % (36-46); Hemoglobin 11.7 g/dL (12.0-16.0)
[2021-09-23 12:59] LABS: GTT (PREG) 1 Hour PP 50gm Dose 107 mg/dL (76-139)
== END ==
PROVIDERS: PCP Family Medicine; Referring Provider Obstetrics & Gynecology; Visit Provider Obstetrics & Gynecology
DX: Z34.82 Encounter for supervision of other normal pregnancy, second trimester (principal); Z3A.26 26 weeks gestation of pregnancy
CPT/HCPCS: 36415; 82950; 85014; 85018

== ENCOUNTER 2021-11-06 22:07 | Observation (INO) | payer OTHER, MEDICAID, SELFPAY ==
[2021-11-06 22:27] VITALS: BP 113/64; PULSE 78; RESP 17; TEMP 37; O2SAT 99; BMI 33.7
--- NOTE | 2021-11-06 22:43 | DI.US.S_ITS ---
PROCEDURE: US OB LIMITED INDICATIONS: spotting at 32 weeks OUTSIDE/PRIOR DATING DATA: Last menstrual period (LMP): 03/23/2021. LMP-based estimated date of delivery (DORIS): 12/28/2021. First dating scan (date and location): 05/06/2021. Estimated date of delivery (DORIS) from first dating scan: 12/29/2021. TECHNIQUE: Real-time scanning was performed of the fetus, with image documentation. COMPARISON: [facility], OB >= 14 WEEKS FETUS, 08/20/2021, 14:17. [facility], US OB >= 14 WEEKS FETUS, 10/20/2021, 13:46. FINDINGS: A single living intrauterine gestation is present. Presentation: Vertex. Placenta: Placental position is right fundal, without previa. Amniotic fluid index: 21.7 cm, normal range is 5-24 cm. Single deepest vertical pocket is 7.3 cm. heart rate: 128 beats per minute. Maternal cervical canal: 5.4 cm long. Normal lower limit is 2.5 cm. Estimated gestational age from initial scan: 32 weeks 3 days. IMPRESSION: 1. Single living intrauterine redemonstrated in vertex presentation. 2. No periplacental fluid collections to suggest abruption. No evidence of placenta previa. Dictated by: Wilbur Petersen M.D. on 11/07/2021 at 0:05 Approved by: Wilbur Petersen M.D. on 11/07/2021 at 0:09
--- NOTE | 2021-11-07 00:10 | PC.NURSE ---
Pt is 32 weeks . started with vaginal bleeding around 2200. had some mild pain on left abdomen. denies cramping. did have patient on monitor for baby hr and contractions. OB provider in room confirming baby's heart rate was ok.
[2021-11-07 00:33] VITALS: BP 104/57; PULSE 78; RESP 17; O2SAT 98
--- NOTE | 2021-11-07 01:59 | PM.OBTRLD ---
Visit Information Visit Information Date of evaluation: 11/06/21 Primary OB Provider: Britany Alexander On-call OB Provider: Mel Desouza Reason for Evaluation: Yes other Comments/Additional reasons for admission: This patient is a 30yo @ 32+4 presenting with vaginal bleeding. The patient reports that a strong sneeze precipitated RUQ pain yesterday afternoon, and that 6 hours later, she had some transient LLQ cramping and noticed bright red bleeding on standing. The cramping has resolved and the bleeding is now scant. She reports good movement, denies watery discharge, and has had an uncomplicated with a right fundal placenta. She has a history of 4x NSVDs, 3 of which were complicated by hemorrhage. She denies any recent intercourse or abdominal trauma. She denies any other contributory history. Of note, the patient's triage and evaluation were performed in the trauma bay of the emergency department as no other space was available. Her monitoring was via bedside portable monitor. Vital Signs Vital Signs: Vital Signs - 8 hr 11/06/21 22:27 11/07/21 00:33 Temperature 98.6 F Pulse Rate 78 78 Respiratory Rate 17 17 Blood Pressure 113/64 104/57 L Pulse Oximetry 99 98 PFSH Medical History depression (~2017) Spontaneous vaginal delivery Urinary tract infection Surgical History Anesthesia History of hernia repair (~2018) History of umbilical hernia repair (~2016) [place] teeth extracted (~2001) Family History Grandfather Lymphoma Grandmother Cancer Mother Age: 63 Diabetes mellitus Hypertension Hyperlipidemia Grandmother Cancer of kidney Father No problems noted. Grandfather No problems noted. Social History marital status: number of children: 4 household members: spouse and family lives independently: Yes caregiver/support person: No housing: apartment pets and animals: Yes (1 chihuahua: safe around kids. 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 ) daily servings fruits/ve-4 caffeine: No Type(s) of exercise: walking frequency: 5-6 times per week duration: 30-45 minutes/day Review of Systems Constitutional Constitutional: Reports system reviewed and no additional complaints, except as documented Cardiovascular Cardiovascular: Reports system reviewed and no additional complaints, except as documented Respiratory Respiratory: Reports system reviewed and no additional complaints, except as documented Gastrointestinal Gastrointestinal: Reports as per HPI Genitourinary Genitourinary: Reports as per HPI Musculoskeletal Musculoskeletal: Reports system reviewed and no additional complaints, except as documented Exam Vital Signs (past 8 hours): - 11/06/21 22:27 11/07/21 00:33 Temperature 98.6 F Pulse Rate 78 78 Respiratory Rate 17 17 Blood Pressure 113/64 104/57 L Pulse Oximetry 99 98 Oxygen Delivery Method Room Air Narrative Exam Narrative: Patient resting in bed, well appearing. No blood on chucks, patient not wearing pad, scant old blood on underwear. Const General: cooperative, healthy appearing and comfortable GI Palpation: soft and No tender External Female Exam: normal external appearance Speculum Exam - Vagina: not erythematous, no lacerations, no lesions and vaginal bleeding (3-5 ccs old clot cleared from vault with some mucus. ) Speculum Exam - Cervix: normal appearance of the cervix, closed, no lesions, patulous and other (no ongoing bleeding from os) OB/External & Speculum: vaginal bleeding (3-5 ccs old clot cleared from vault with some mucus. ) Evaluation Evaluation Baseline heart rate: 130 Variability: Moderate (11-25) monitor accelerations: Present Monitor Decelerations: Absent Category of Tracing: Reactive Status: Category l Cervical dilation (cm): 0 Comments: cervix closed/long/posterior, external os 0.5cm but internal os closed. Diagnosis, Plan/Disposition Plan/Disposition Plan: This patient presents with vaginal bleeding of unclear etiology. She has no signs of labor, her membranes appear to be intact with no pooling and an MIKY of 21, and status is reassuring. Concern for a small placental abruption, which is often occult and unable to be visualized on ultrasound. Discussed with the patient the above. The center is currently full with neither staffing nor rooms available, and the patient currently occupying the trauma bay in the emergency room where staff are unable to perform ongoing monitoring. Patient lives two blocks from hospital and has spouse and other adults who can stay with her tonight and over the weekend. Discussed alternatives including discharge with expectant management at home for the rest of the night and discussion of symptoms in the AM, vs. transfer to a tertiary care center for inpatient monitoring. After extensive discussion of precautions for return, need to stay near hospital and with adults who can provide help over the weekend, patient was discharged home. Has scheduled follow up planned Wednesday. OB Disposition: home
== END 2021-11-07 00:58 | disposition home or self-care (01) ==
LOC: ED 22:15 → LABOR 22:17
PROVIDERS: Admitting Provider Obstetrics & Gynecology; Emergency Provider Obstetrics & Gynecology; PCP Family Medicine; Referring Provider Obstetrics & Gynecology; Visit Provider Nurse Practitioner Obstetrics & Gynecology
DX: O46.93 Antepartum hemorrhage, unspecified, third trimester (principal); Z3A.32 32 weeks gestation of pregnancy
CPT/HCPCS: 76815; 99281; G0378

== ENCOUNTER → 2021-12-09 10:58 | Outpatient (CLI) | payer OTHER, MEDICAID, SELFPAY ==
[2021-12-10 13:12] LABS: Strep Grp B PCR NEG for Grp B Strep
== END ==
PROVIDERS: PCP Family Medicine; Visit Provider Obstetrics & Gynecology
DX: Z34.83 Encounter for supervision of other normal pregnancy, third trimester (principal); Z3A.37 37 weeks gestation of pregnancy
CPT/HCPCS: 87653

== ENCOUNTER 2021-12-23 06:59 | Inpatient (IN) | payer OTHER, MEDICAID, SELFPAY ==
[2021-12-23 08:08] LABS: Add Manual Diff / Slide Review NO; Basophils Absolute Auto 0 /uL (0-100); Basophils Percent Auto 0.3 % (0-2); Eosinophils Absolute Auto 100 /uL (0-450); Eosinophils Percent Auto 0.5 % (2-4); Hematocrit 36.2 % (36-46); Hemoglobin 12.4 g/dL (12.0-16.0); Lymphocytes Absolute Auto 1500 /uL (1100-4500); Lymphocytes Percent Auto 14.6 % (25-40); Mean Corpuscular HGB Conc 34.2 % (30-36); Mean Corpuscular Hemoglobin 30.3 PG (26-34); Mean Corpuscular Volume 88.5 fL (80-100); Monocytes Absolute Auto 700 /uL (0-900); Neutrophils Absolute Auto 8200 /uL (1500-7000); Neutrophils Percent Auto 77.6 % (50-75); Platelet Count 134 X10^3/uL (150-400); Red Blood Cell Count 4.09 X10^6/uL (4.0-5.2); Red Cell Distribution Width 15.4 % (11.6-14.8); White Blood Cell Count 10.6 X10^3/uL (4.5-11.0)
[2021-12-23] MEDS: LACTATED RINGERS 1,000 ML 100 ML IV ×2 (08:11→13:21)
[2021-12-23] MEDS: OXYTOCIN PREMIX 30 UNIT/500 ML PLAST..BAG IV (08:11)
[2021-12-23 08:23] LABS: COVID19 -Nasal RAPID Negative (Negative)
--- NOTE | 2021-12-23 10:17 | P.HPOB_ITS ---
OB HPI Date/Time Date of admission: 12/23/21 Date Patient Seen: 12/23/21 Time Patient Seen: 08:05 History of Present Condition Chief complaint: DORIS Calculator Estimated Delivery Date Method Current WG Current Estimate 12/28/21 LMP (Certain) 39w 2d Other Estimates 12/30/21 Ultrasound #1 39w 0d Estimated Gestational Age (weeks): 39+2 : 5 Para: 4 care: good care, initiated at week # (10), number of visits (10) and pounds weight gain (14) Dating criteria OB: LMP confirmed by 1st trimester US Ultrasounds: normal 1st trimester US and normal mid trimester US Obstetrical complications: other (Bleeding in third trimester) Medical complications OB: none Indications Indication for induction OB: history of rapid labor (Grand multiparous) and other (History of macrosomia) Preadmission Labs Last OB Lab Results: Blood Type A Positive 12/23/21 07:55 Antibody Screen Negative 12/23/21 07:55 Hematocrit 36.2 % (36-46) 12/23/21 07:55 Hemoglobin 12.4 g/dL (12.0-16.0) 12/23/21 07:55 Hepatitis B Surface Antigen Negative s/c (NEGATIVE) 06/02/21 15 :09 Hepatitis C Antibody Negative s/c (NEGATIVE) 06/02/21 15:09 HIV (1&2) Ag and Ab, 4th Generation Nonreactive (Nonreactiv e) 01/05/18 15:50 RPR Titer Additional Testing Confirmatory testing 06/02/21 15:0 9 Rubella Antibody 9.6 IU/mL (>15) L 06/02/21 15:09 Varicella-Zoster IgG Antibody 149 index (Immune >165) L 1 15:09 Glucose 1 Hour 107 mg/dL (76-139) 09/23/21 11:35 Group B Streptococcus (PCR) Neg for grp b strep 12/09/21 10:58 -: Chlamydia screen: negative, Gonorrhea screen: negative and Urine: negative -: PAP smear: Normal Genetic Screens: Quad screen: Normal External Labs -: Urine: negative Prior (ies) Past Pregnancies Del. Date GA/Weeks Labor Lgth Wt Sex Route Outcome Anesthesia Place Delv Breastfeed Preg Comp Name 02/21/10 41 12 9 lb 4.5 oz Male vaginal live - full t erm epidural [facility], [place], [place] 2 weeks, low supply. post-dates induction Seth 08/21/13 39 23 9 lb 12 oz Male vaginal live - full te rm epidural [place] 2 months none Michael 04/03/16 38 13 9 lb 6.5 oz Female vaginal live - full t erm epidural [facility], Dr. Cagle 6 weeks hemorrhage Kitty 01/21/18 39 5 8 lb 6.5 oz Female vaginal live - full t erm epidural [facility] w Foist 3 mos. hemorrhage Alexsandra Delivery Date: 02/21/10 Last Updated by: Demi Kent R.N. Induced for post-dates. Passed out after delivery during transfer to PP room. Heavy bleeding controlled with meds/IV fluids, no transfusion. 1st degree tear w repair. Delivery Date: 08/21/13 Last Updated by: Demi Kent R.N. First epidural didn't work. Delivery Date: 04/03/16 Last Updated by: Demi Kent R.N. PPH, controlled with cytotec, did not need transfusion. Delivery Date: 01/21/18 Last Updated by: Demi Kent R.N. Induced, was already dilated 5 cm & pt was uncomfortable. PPH, controlled with meds, did not need transfusion. Evaluation Evaluation Baseline heart rate: 120 Variability: Moderate (11-25) monitor accelerations: Present Monitor Decelerations: Absent Status: Category l Dilation (cm): 4 Effacement (%): 85 station: -1 Position of cervix: mid Consistency: medium PFSH Medical History depression (~2017) Spontaneous vaginal delivery Urinary tract infection Surgical History Anesthesia History of hernia repair (~2018) History of umbilical hernia repair (~2016) [place] teeth extracted (~2001) Family History Grandfather Lymphoma Grandmother Cancer Mother Age: 63 Diabetes mellitus Hypertension Hyperlipidemia Grandmother Cancer of kidney Father No problems noted. Grandfather No problems noted. Social History marital status: number of children: 4 household members: spouse and family lives independently: Yes caregiver/support person: No housing: apartment pets and animals: Yes (1 doug: safe around kids. 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 ) daily servings fruits/ve-4 caffeine: No Type(s) of exercise: walking frequency: 5-6 times per week duration: 30-45 minutes/day Meds Home Medications and Allergies Home Medications Medication Instructions Recorded Confirmed Type ondansetron 4 mg disintegrating 4 mg PO Q6H PRN nausea and 05/28/21 12/09/21 Rx tablet vomiting #20 tabs prenat.vits,mike,clf-jutz-horhn 1 tab PO DAILY 05/28/21 12/09/21 History metoclopramide HCl 10 mg tablet 10 mg PO Q6H PRN nausea and 06/02/21 12/09/21 Rx (Reglan) vomiting #20 tabs pantoprazole 40 mg tablet,delayed 40 mg PO DAILY #30 tabs 07/31/21 12/09/21 Rx release (Protonix) Allergies Allergy/AdvReac Type Severity Reaction Status Date / Time Penicillins [PENICILLINS] Allergy Mild HIVES Verified 12/09/21 10:40 OB Exam Narrative Exam Narrative: Generally: Patient is sitting up in bed, no acute distress Lungs: Clear to auscultation bilaterally Cardiovascular: Regular rate and rhythm Fundal height: 40 cm Estimated weight: 8-1/2 lb Extremities: Trace edema, 1+ DTRs Objective Labs Result Diagrams: 12/23/21 07:55 Labs: Laboratory Results - last 24 hr 12/23/21 12/23/21 12/23/21 07:55 07:55 07:55 WBC 10.6 RBC 4.09 Hgb 12.4 Hct 36.2 MCV 88.5 MCH 30.3 MCHC 34.2 RDW 15.4 H Plt Count 134 L Neut % (Auto) 77.6 H Lymph % (Auto) 14.6 L [place] % (Auto) 7.0 Eos % (Auto) 0.5 L Baso % (Auto) 0.3 Neut # (Auto) 8200 H Lymph # (Auto) 1500 [place] # (Auto) 700 Eos # (Auto) 100 Baso # (Auto) 0 SARS-CoV-2 (PCR) Negative Blood Type A Positive Antibody Screen Negative Assessment and Plan Assessment and Plan Assessment and Plan narrative: Assessment: 31-year-old 5 para 4 at 39-,2/7 weeks gestation for induction of labor due to history of macrosomic infants and history of rapid labors Plan: Pitocin per protocol 2 Artificial rupture membranes when able Epidural as necessary Expected management to spontaneous vaginal delivery Time Spent with Patient Total time spent with greater than 50% in coordination of care (as documented) at patient's floor/unit and/or counseling patient:: 15-24 minutes
--- NOTE | 2021-12-23 10:23 | PM.OBPNLAB ---
Date/Time Date Patient Seen: 12/23/21 Time Patient Seen: 10:23 Pain Control Pain control: tolerating well Pelvic Exam Dilation (cm): 5 Effacement (%): 85 station: -1 Amniotic membrane status: Intact Contractions Contractions on admission: none Monitor mode: External Pitocin rate (mU/min): 9 Contraction frequency (min): 3 Contraction duration (min): 1 Contraction intensity: Moderate Status status: Category l Monitor Accelerations: Present Monitor Decelerations: Absent Monitor Variability: Moderate Assessment and Plan Assessment: induction ongoing Comments: AROM with clear amniotic fluid
--- NOTE | 2021-12-23 12:01 | PM.AN.REGBLK ---
Regional Block Pre-procedure Procedure: Continuous Lumbar Epidural for L&D Attending OB provider: Britany Alexander PMH/ROS narrative: term induction, no complications ASA Class: II Labs: Hct 36.2 % (36-46) 12/23/21 07:55 Plt Count 134 X10^3/uL (150-400) L 12/23/21 07:55 Medications: Current Medications Generic Name Dose Route Start Last Admin Trade Name Freq PRN Reason Stop Dose Admin Calcium Carbonate 1,000 mg 12/23/21 07:46 Calcium Carbonate 500 Mg Tab PO Q2HR PRN Dyspepsia Carboprost Tromethamine 250 mcg 12/23/21 07:46 Carboprost 250 Mcg/Ml Ampul IM Q90M PRN Bleeding Diphenhydramine HCl 25 mg 12/23/21 11:11 Diphenhydramine 50 Mg/Ml Vial IV Q10M PRN Pruritis Fentanyl 50 mcg 12/23/21 07:46 Fentanyl 100 Mcg/2 Ml Inj IV Q1H PRN Pain, Moderate (4-6) Oxytocin/Lactated Ringer's 30 unit in 500 mls @ 200 mls/hr 12/23/21 07:46 Oxytocin Premix IV CONT PRN Bleeding Protocol Tranexamic Acid 1,000 mg/ 100 mls @ 200 mls/hr 12/23/21 07:46 Sodium Chloride IV NOW PRN Bleeding Lactated Ringer's 1,000 mls @ 100 mls/hr 12/23/21 08:00 12/23/21 08:11 Lactated Ringers IV 100 mls/hr CONT RADHA Administration Oxytocin/Lactated Ringer's 30 unit in 500 mls @ 3 mls/hr 12/23/21 08:00 12/23/21 08:11 Oxytocin Premix IV 3 milliunit/min TITRATE RADHA 3 mls/hr Administration Protocol 3 MILLIUNIT/MIN FENT 2MCG/ML BUPIV 0.125% EPI 200 mcg in 100 mls @ 6 mls/hr 12/23/21 11:15 Fentanyl/Bupiv/Ns 2mcg/Ml - 0.125% EPIDURAL CONT RADHA Methylergonovine Maleate 0.2 mg 12/23/21 07:46 Methylergonovine 0.2 Mg/Ml Vial IM NOW PRN Bleeding Methylergonovine Maleate 0.2 mg 12/23/21 07:46 Methylergonovine 0.2 Mg Tablet PO Q6HR PRN Heavy Bleeding Metoclopramide HCl 10 mg 12/23/21 07:46 Metoclopramide 10 Mg/2 Ml Inj IV NOW PRN Nausea And Vomiting Misoprostol 400 mcg 12/23/21 07:46 Misoprostol 200 Mcg Tablet SL NOW PRN Bleeding Misoprostol 1,000 mcg 12/23/21 07:46 Misoprostol 200 Mcg Tablet NV NOW PRN Bleeding Misoprostol 800 mcg 12/23/21 07:46 Misoprostol 200 Mcg Tablet NV NOW PRN Bleeding Nalbuphine HCl 2.5 mg 12/23/21 11:11 Nalbuphine 20 Mg/Ml Ampul IV Q10M PRN Pruritis Naloxone HCl 0.2 mg 12/23/21 07:46 Naloxone 0.4 Mg/Ml Vial IV Q2MIN PRN Opiate Reversal Ondansetron HCl 4 mg 12/23/21 07:46 Ondansetron 4 Mg/2 Ml Inj IV Q4HR PRN Nausea And Vomiting Oxytocin 10 unit 12/23/21 07:46 Oxytocin 10 Unit/Ml Vial IM NOW PRN Bleeding Allergies: Allergies Allergy/AdvReac Type Severity Reaction Status Date / Time Penicillins [PENICILLINS] Allergy Mild HIVES Verified 12/09/21 10:40 Procedure Insertion date: 12/23/21 Insertion time: 11:44 Prep/Local: betadine x3 and 1% lidocaine Interspace: L3-4 Patient position: sitting Needle: 18 gauge Hustead (CSE: 27g Pencan through Hustead, clear CSF, 2.5mg MPF bupiv) Loss of resistance with: saline SAADIA at (cm): 5 Catheter placed at SKIN (cm): 10 Catheter in SPACE (cm): 5 Insertion: No CSF, No Blood, No Paresthesia with insertion, No Paresthesia with injection and No Test dose reaction Initial Medications TEST DOSE time: 11:43 TEST DOSE: 1.5% lidocaine with epinephrine 1:200k (mL): 3 Infusion INFUSION: 0.125% bupivacaine and with fentanyl 2 mcg/mL Initial rate (mL/hr): 8 Subsequent interventions: Post-procedure Anesthesia time START: 11:34 Anesthesia time END: 14:18 Post-procedure Anesthesia Assessment: Yes CV function: HR/BP stable, Yes Resp function: RR/sat/airway adequate, Yes Mental status appropriate and No Anesthesia complications
[2021-12-23] MEDS: FENT 2MCG/ML BUPIV 0.125% EPI 200 MCG/100 ML PLAST..BAG 6 MCG EPIDURAL (12:10)
[2021-12-23] MEDS: miSOPROStoL 200 MCG TABLET 800 MCG PR (12:30)
--- NOTE | 2021-12-23 15:48 | PM.OBPRVD ---
Events: Labor Induction Labor & Delivery Delivery date: 12/23/21 Cervical ripening method: none Induction method: per pitocin protocol Delivery augmentation: rupture of membranes Delivery monitor: external FHT and external uterine Route of delivery: vacuum extraction Indication for instrumentation: nonreassuring FHR tracing (Deep variable decelerations) Episiotomy description: None L&D Laceration Description: None Estimated blood loss (mL): 300 Anesthesia Type: Epidural Complications: None Narrative: Patient complete and pushed for 4 minutes. With the last contraction a vacuum was applied due to deep variable decelerations. With 1 contraction the vertex delivered in the MELIDA presentation over an intact perineum at 2:08 p.m.. No nuchal cord. The remainder of the body delivered without difficulty and was placed on mom's abdomen. Pitocin was given in the IV fluids. After the cord stopped pulsing, the cord was double clamped and cut. Cord bloods were obtained. The placenta delivered intact with a three-vessel cord at 2:15 p.m.. The fundus was massaged to firm. Estimated blood loss was originally about 50 cc. Apgars 8 at 1 minute and 9 at 5 minutes. I was called back to the delivery room about 15 minutes later with brisk vaginal bleeding. The uterus was evacuated of approximately 100 cc of clot, and about 200 cc of blood were on the chux. The fundus was firm and down deep in the pelvis. 800 mcg of misoprostol were placed rectally. Epidural analgesia. . Mom and infant stable to recovery. [place] Baby 1: gender: Male Presentation: vertex Position: Left Occiput Anterior Placenta delivery description: Spontaneous Cord Vessel Description: 3 Vessels score (1 min): 8 score (5 min): 9 weight: 8 lb 11.2 oz Plan for aftercare: Routine care
[2021-12-23] MEDS: KETOROLAC 30 MG/ML VIAL IV ×2 (16:09→22:35)
[2021-12-23 19:13] VITALS: BP 96/56
[2021-12-24] MEDS: KETOROLAC 30 MG/ML VIAL IV ×2 (03:33→09:48)
[2021-12-24 06:42] LABS: Hemoglobin 11.2 g/dL (12.0-16.0)
[2021-12-24] MEDS: PRENATAL VIT,CALC/IRON/FOLIC 1 TABLET 1 TAB PO (08:49)
[2021-12-24] MEDS: DOCUSATE 100 MG CAPSULE PO (08:49)
[2021-12-24 09:31] VITALS: BP 96/56; PULSE 72; RESP 16; TEMP 36.7
== END 2021-12-24 12:50 | disposition home or self-care (01) | DRG 560 ==
PROVIDERS: Admitting Provider Obstetrics & Gynecology; PCP Pediatrics; Referring Provider Obstetrics & Gynecology; Visit Provider Obstetrics & Gynecology
DX: O76 Abnormality in fetal heart rate and rhythm complicating labor and delivery (principal); Z3A.39 39 weeks gestation of pregnancy; Z37.0 Single live birth; Z20.822 Contact with and (suspected) exposure to COVID-19
CPT/HCPCS: 01967; 36415; 59050; 59409; 85014; 85018; 85025; 86850; 86900; 86901; 87635; C9803; G0379; J1885; J2590; S0191

== ENCOUNTER → 2022-01-22 15:45 | Outpatient (CLI) | payer OTHER, MEDICAID, SELFPAY ==
[2022-01-22 19:42] LABS: Alanine Aminotransferase 35 IU/L (<35); Albumin 4.2 g/dL (3.5-5.0); Albumin Globulin Ratio 1.3 (1.0-2.8); Alkaline Phosphatase 56 U/L (38-126); Aspartate Aminotransferase 28 IU/L (14-36); BUN Creatinine Ratio 23.1 (6-22); Bilirubin Total 0.5 mg/dL (0.2-1.3); Blood Urea Nitrogen 18 mg/dL (7-17); Calcium 9.1 mg/dL (8.4-10.2); Carbon Dioxide 28 mmol/L (22-32); Chloride 104 mmol/L (98-107); Estimated Glomerular Filt Rate > 60 mL/min (>60); Globulin 3.2 g/dL (1.7-4.1); Glucose 76 mg/dL (70-100); HEMOLYSIS < 15 (0-50); Potassium 4.2 mmol/L (3.4-5.1); Sodium 143 mmol/L (137-145); Total Protein 7.4 g/dL (6.3-8.2)
== END ==
PROVIDERS: PCP Pediatrics; Referring Provider Pediatrics; Visit Provider Pediatrics
DX: R10.11 Right upper quadrant pain (principal)
CPT/HCPCS: 36415; 80053

== ENCOUNTER → 2022-01-28 07:00 | Outpatient (CLI) | payer OTHER, MEDICAID, SELFPAY ==
--- NOTE | 2022-01-28 07:01 | DI.US.S_ITS ---
PROCEDURE: US ABDOMEN LIMITED INDICATIONS: RUQ PAIN TECHNIQUE: Real-time focused scanning was performed of the abdomen, with image documentation. COMPARISON: None. FINDINGS: Normal size and appearance of the liver. No focal hepatic mass. No intrahepatic or extrahepatic biliary ductal dilatation. Normally distended gallbladder without wall thickening or pericholecystic fluid. No shadowing gallstone or sludge. Visualized portions of the pancreas are normal. IMPRESSION: Normal sonographic appearance of the liver, biliary ducts, gallbladder, and pancreas. Dictated by: Carter Moreau M.D. on 01/30/2022 at 9:23 Approved by: Carter Moreau M.D. on 01/30/2022 at 9:23
== END ==
PROVIDERS: PCP Pediatrics; Referring Provider Pediatrics; Visit Provider Pediatrics
DX: R10.11 Right upper quadrant pain (principal)
CPT/HCPCS: 76705

== ENCOUNTER → 2022-05-27 16:29 | Outpatient (CLI) | payer OTHER, MEDICAID, SELFPAY ==
[2022-05-27 17:05] LABS: Add Manual Diff / Slide Review NO; Basophils Absolute Auto 0 /uL (0-100); Basophils Percent Auto 0.2 % (0-2); Eosinophils Absolute Auto 100 /uL (0-450); Eosinophils Percent Auto 0.5 % (2-4); Hemoglobin 13.1 g/dL (12.0-16.0); Lymphocytes Absolute Auto 2300 /uL (1100-4500); Lymphocytes Percent Auto 21.1 % (25-40); Mean Corpuscular HGB Conc 33.6 % (30-36); Mean Corpuscular Hemoglobin 29.5 PG (26-34); Mean Corpuscular Volume 87.8 fL (80-100); Monocytes Absolute Auto 500 /uL (0-900); Neutrophils Absolute Auto 7900 /uL (1500-7000); Neutrophils Percent Auto 73.2 % (50-75); Platelet Count 253 X10^3/uL (150-400); Red Blood Cell Count 4.44 X10^6/uL (4.0-5.2); Red Cell Distribution Width 12.9 % (11.6-14.8); White Blood Cell Count 10.8 X10^3/uL (4.5-11.0)
[2022-05-27 17:38] LABS: Vitamin D 25 Hydroxy (D3) 24.5 ng/mL (30.0-100.0)
[2022-05-27 17:52] LABS: TSH w/ Reflex to FT4 0.57 uIU/mL (0.47-4.68)
[2022-05-27 18:17] LABS: Vitamin B12 698 pg/mL (239-931)
== END ==
PROVIDERS: PCP Family Medicine; Referring Provider Family Medicine; Visit Provider Family Medicine
DX: D64.9 Anemia, unspecified (principal); L65.9 Nonscarring hair loss, unspecified
CPT/HCPCS: 36415; 82306; 82607; 83036; 84443; 85025

== ENCOUNTER → 2022-12-26 10:08 | Outpatient (CLI) | payer OTHER, MEDICAID, SELFPAY | PROVIDERS: PCP Family Medicine; Referring Provider Family Medicine; Visit Provider Family Medicine | DX: R07.9 Chest pain, unspecified (principal) | CPT/HCPCS: 93005 ==

== ENCOUNTER → 2022-12-29 10:12 | Outpatient (CLI) | payer OTHER, MEDICAID, SELFPAY ==
[2022-12-29 11:26] LABS: COVID19 -Nasal RAPID Negative (Negative)
== END ==
PROVIDERS: PCP Family Medicine; Visit Provider Family Medicine
DX: J02.9 Acute pharyngitis, unspecified (principal)
CPT/HCPCS: 87070; 87077; 87147; 87635; 87880

== ENCOUNTER → 2023-03-30 16:14 | Outpatient (CLI) | payer OTHER, MEDICAID, SELFPAY ==
[2023-03-30 18:37] LABS: HCG Quantitative /Beta subunit 164.8 mIU/mL
== END ==
PROVIDERS: PCP Family Medicine; Referring Provider Obstetrics & Gynecology; Visit Provider Obstetrics & Gynecology
DX: N91.2 Amenorrhea, unspecified (principal)
CPT/HCPCS: 36415; 84702

== ENCOUNTER → 2023-05-04 11:28 | Outpatient (CLI) | payer OTHER, MEDICAID, SELFPAY ==
[2023-05-04 15:05] LABS: Urine N gonorrhoeae NOT DETECTED
[2023-05-04 15:08] LABS: Urine Chlamydia NOT DETECTED
== END ==
PROVIDERS: PCP Family Medicine; Visit Provider Obstetrics & Gynecology
DX: Z34.81 Encounter for supervision of other normal pregnancy, first trimester (principal); Z3A.01 Less than 8 weeks gestation of pregnancy
CPT/HCPCS: 87491; 87591

== ENCOUNTER 2023-05-17 11:02 | Day surgery (SDC) | payer MEDICAID, OTHER, SELFPAY ==
[2023-05-17] VITALS (7 sets, daily range): BP systolic 86–109; BP diastolic 54–76; PULSE 67–82; RESP 12–17; TEMP 36.3–36.4; O2SAT 92–98; BMI 32.3
--- NOTE | 2023-05-17 | PATH_ITS ---
[facility] Accession Number: [id number] No. of containers..01 Tissue . 01 Material submitted: . product of conception - PRODUCTS OF CONCEPTION . 01 Diagnosis: Products of Conception, Curettings: Immature chorionic villi, hypersecretory/decidualized endometrium, and fragments of immature tissue (including hepatic tissue, gastrointestinal, respiratory tissue, bone, etc.), consistent with products of conception. Negative for gestational trophoblastic disease. MRV 05/26/20231616 Local . 01 Electronically signed: . Thomas Braden MD, Pathologist NPI- [id number] . 01 Gross description: . The specimen is received in formalin labeled with the patient's name, , and products of conception, consists of multiple fragments of material aggregating to 4.2 x 3.2 x 0.7 cm, two arms with the normal number and arrangements of digits are identified; however, no feet or other organs can be grossly identified. Also included are multiple fragments of spongy to membranous soft tissue aggregating to 11.4 x 10.3 x 1.6 cm. Superintendent [employer] sections to include tissue are submitted in cassettes A1-A2. ([id number]) /MRV 05/26/20231616 Local . 01 Pathologist provided ICD-10: Z33.2 . 01 CPT . 370318 Specimen Comment: A courtesy copy of this report has been sent to [phone] Performed at: 01 [facility] [address] [place] [address], [place], [place] [id number] MD Wilbur Pardo MD Phone: [phone]
--- NOTE | 2023-05-17 09:37 | PM.GYNHP.1 ---
History of Present Illness History of Present Illness Narrative: Kiya Boone is a 32 year old female 6 para 5 with an undesired . She is here for a suction D&C. [facility] Medical History (Updated 04/06/23 @ 08:41 by Veronica Garcia RN) RUQ abdominal pain Bleeding in early Left ankle pain Urinary tract infection Atypical chest pain depression (~2017) Spontaneous vaginal delivery Surgical History [place] teeth extracted (~2001) Anesthesia History of hernia repair (~2018) History of umbilical hernia repair (~2016) Family History (Updated 04/06/23 @ 08:44 by Veronica Garcia RN) Grandfather Lymphoma Grandmother Breast cancer Mother Age: 65 Diabetes mellitus Hypertension Hyperlipidemia Grandmother Cancer of kidney Abdominal hernia Father No problems noted. Grandfather No problems noted. 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 ) daily servings fruits/ve-4 caffeine: Yes (occasional tea/coffee, not daily) Type(s) of exercise: none and walking frequency: 5-6 times per week duration: 30-45 minutes/day Meds Home Medications and Allergies Home Medications Medication Instructions Recorded Confirmed Type vitamin-ferrous sulfate tab PO 04/06/23 05/04/23 History 27 mg iron-folic acid 0.8 mg tablet Allergies Allergy/AdvReac Type Severity Reaction Status Date / Time Penicillins [PENICILLINS] Allergy Mild HIVES Verified 05/17/23 11:16 Exam Narrative Exam Narrative: HEENT: No thyromegaly, no anterior cervical or supraclavicular lymphadenopathy. Lungs:Clear to auscultation bilaterally, no wheezes. Cardiovascular: Regular rate and rhythm, no murmurs, rubs, or gallops. Abdomen: Well-healed scars. No hepatosplenomegaly. No masses palpable. External genitalia: Normal Vagina: Normal Cervix: Normal Bimanual exam: 12 Week size uterus. Mobile. Extremities: No edema Assessment & Plan Assessment & Plan narrative: Assessment: 32-year-old 6 para 5 with an undesired at 11 weeks' gestation Blood type A positive Plan: Suction D&C The risks, benefits, and alternatives to the procedure were explained to the patient. The risks including bleeding, infection, and uterine perforation. She understands these risks and agrees to proceed. A full par Q was held and consent form was signed. Time Spent With Patient Time with patient: less than 30 minutes
--- NOTE | 2023-05-17 10:07 | SUR.OPER ---
Lithotomy on padded OR bed, head on pillow, arms secured on padded arm boards at <90 degrees abduction. Legs secured in padded yellow fins stirrups.
--- NOTE | 2023-05-17 11:45 | PM.PREOP ---
Pre-operative Note Interval Note History & Physical reviewed/Exam performed by Physician: Yes Changes to H&P: No H&P completed within 30 days and has changed as indicated here:: 05/17/23
--- NOTE | 2023-05-17 12:40 | P.OP_ITS ---
Operative Date/Time/Diagnoses Date of procedure: 05/17/23 Time of procedure: 12:40 Pre-op diagnosis: Undesired Post-op diagnosis: same Procedure & Clinicians Procedure: Procedures Operation Date: 05/17/23 12:15 Actual Procedure Side Surgeon p Suction Dilation and Curettage Britany Alexander MD Indications: 32 year old with an undesired Surgeon: Britany Alexander Anesthesia Type: General (LMA) Operative Notes Findings: Eleven week size anteverted uterus Large amount of products of conception Specimen(s): products of conception Estimated blood loss (mL): 150 Blood products transfused: none Procedure in detail: After informed consent was obtained, the patient was taken to the operating room where she was placed in the dorsal supine position. After adequate LMA general anesthesia was achieved, she was placed in the dorsal lithotomy position, and prepped and draped in the usual sterile fashion. A time-out was performed. A bivalve speculum was placed into the vagina and the anterior lip of the cervix was grasped with a single-tooth tenaculum. The cervical os was sequentially dilated to the # 12 Hegar dilator. The # 12 curved plastic curette passed easily into the endometrial cavity. Several passes with suction revealed fluid and placenta. Several more passes with suction revealed tissue. The suction tip was changed to a #8. Several passes with suction revealed a gritty feel to the uterine lining. There was minimal amount of bleeding coming from the cervical os. The single-tooth tenaculum was removed from the anterior lip of the cervix. The bivalve speculum was removed from the vagina. 400 mcg of mi soprostol were placed into the rectum. Gloves were changed. A bimanual exam was performed which revealed a well contracted 10 week size anteverted uterus. Sponge, lap, and instruments counts were correct x2. The patient tolerated the procedure well, and was taken to PACU in stable condition. Complications: none Post-operative Condition: stable Disposition: PACU Plan for aftercare: Home after recovery
== END 2023-05-17 13:20 | disposition home or self-care (01) ==
PROVIDERS: PCP Family Medicine; Referring Provider Obstetrics & Gynecology; Visit Provider Obstetrics & Gynecology
PROC: (CPT 58120; principal; 2023-05-17 12:15)
DX: Z33.2 Encounter for elective termination of pregnancy (principal); Z3A.11 11 weeks gestation of pregnancy
CPT/HCPCS: 59841; J1100; J1885; J2250; J2405; J2704; J3010

== ENCOUNTER → 2023-12-13 09:05 | Outpatient (CLI) | payer OTHER, MEDICAID, SELFPAY ==
[2023-12-13 10:48] LABS: HCG Quantitative /Beta subunit 517.17 mIU/mL
== END ==
PROVIDERS: PCP Family Medicine; Referring Provider Obstetrics & Gynecology; Visit Provider Obstetrics & Gynecology
DX: N93.9 Abnormal uterine and vaginal bleeding, unspecified (principal)
CPT/HCPCS: 36415; 84702

== ENCOUNTER → 2023-12-15 08:26 | Outpatient (CLI) | payer OTHER, MEDICAID, SELFPAY ==
[2023-12-15 09:58] LABS: HCG Quantitative /Beta subunit 1313.2 mIU/mL
== END ==
PROVIDERS: PCP Family Medicine; Referring Provider Obstetrics & Gynecology; Visit Provider Obstetrics & Gynecology
DX: R79.89 Other specified abnormal findings of blood chemistry (principal)
CPT/HCPCS: 36415; 84702

== ENCOUNTER → 2023-12-24 11:58 | Outpatient (CLI) | payer OTHER, MEDICAID, SELFPAY ==
[2023-12-24 14:53] LABS: HCG Quantitative /Beta subunit 18509 mIU/mL
== END ==
PROVIDERS: PCP Family Medicine; Referring Provider Obstetrics & Gynecology; Visit Provider Obstetrics & Gynecology
DX: O20.9 Hemorrhage in early pregnancy, unspecified (principal)
CPT/HCPCS: 36415; 84702

== ENCOUNTER → 2023-12-27 09:38 | Outpatient (CLI) | payer OTHER, MEDICAID, SELFPAY ==
[2023-12-27 12:19] LABS: Add Manual Diff / Slide Review NO; Basophils Absolute Auto 0 /uL (0-100); Basophils Percent Auto 0.2 % (0-2); Eosinophils Absolute Auto 0 /uL (0-450); Eosinophils Percent Auto 0.5 % (2-4); Hematocrit 38.9 % (36-46); Hemoglobin 12.9 g/dL (12.0-16.0); Lymphocytes Absolute Auto 1700 /uL (1100-4500); Lymphocytes Percent Auto 18.6 % (25-40); Mean Corpuscular HGB Conc 33.2 % (30-36); Mean Corpuscular Hemoglobin 29.3 PG (26-34); Mean Corpuscular Volume 88.2 fL (80-100); Monocytes Absolute Auto 500 /uL (0-900); Monocytes Percent Auto 5.3 % (3-14); Neutrophils Absolute Auto 6800 /uL (1500-7000); Neutrophils Percent Auto 75.4 % (50-75); Platelet Count 231 X10^3/uL (150-400); Red Blood Cell Count 4.41 X10^6/uL (4.0-5.2)
[2023-12-27 15:12] LABS: HCG Quantitative /Beta subunit 30253 mIU/mL
[2023-12-27 17:01] LABS: Hepatitis B Surface Antigen NEGATIVE s/c (NEGATIVE); Rubella Antibody IgG 11.3 IU/mL (>15)
[2023-12-27 17:18] LABS: HIV 1 & 2 Ab/Ag 4th Gen Combo NEGATIVE (NEGATIVE); Hep C Virus Ab w/Reflex Quant NEGATIVE s/c (NEGATIVE)
[2023-12-28 08:10] LABS: RPR Screen Non Reactive (Non Reactive)
[2023-12-28 12:10] LABS: Varicella IgG Antibody 147 index (Immune >165)
== END ==
PROVIDERS: PCP Family Medicine; Referring Provider Obstetrics & Gynecology; Visit Provider Obstetrics & Gynecology
DX: O20.9 Hemorrhage in early pregnancy, unspecified (principal)
CPT/HCPCS: 36415; 80055; 84702; 86787; 86803; 86850; 86900; 86901; 87389

== ENCOUNTER → 2024-01-18 06:45 | Outpatient (CLI) | payer OTHER, MEDICAID, SELFPAY ==
--- NOTE | 2024-01-18 06:46 | DI.US.S_ITS ---
PROCEDURE: US OB <= 14 WEEKS FETUS INDICATIONS: BLEEDING OUTSIDE/PRIOR DATING DATA: Last menstrual period (LMP): 12/08/2023. LMP-based estimated date of delivery (DORIS): 09/23/2024. First dating scan (date and location): 01/18/2024. Estimated date of delivery (DORIS) from first dating scan: 08/17/2024. TECHNIQUE: Real-time scanning was performed of the fetus and maternal pelvic organs, with image documentation. Endovaginal scanning was also performed to better visualize the fetus and maternal ovaries. COMPARISON: [facility], , OB <= 14 WEEKS FETUS, 05/04/2023, 12:04. FINDINGS: Embryo: Gestational sac is present. Chalfont-rump length measures 2.8 centimeters, consistent with 9 weeks and 5 days. Subchorionic hemorrhage measuring 2.4 x 0.8 x 1.8 centimeters. There is a simple fluid collection measuring 2.2 x 0.5 x 0.6 centimeters adjacent to the gestational sac. Heart rate: 178 Maternal organs: Ovaries not seen. IMPRESSION: 1. Single live intrauterine consistent with 9 weeks and 5 days. This is discordant with last menstrual period, recommend clinical correlation. 2. Small simple fluid collection adjacent to the gestational sac measuring 2.2 x 0.5 x 0.6 centimeters. Attention on follow-up. 3. Subchorionic hemorrhage measuring 2.4 x 0.8 x 1.8 centimeters. We strive to produce accurate, complete, and clear reports of imaging services. To assist us in improving patient care, this report was composed using standard report templates and voice recognition software. Therefore, it may contain abnormal punctuation, insertions and/or omissions. Occasional wrong-word or sound-alike substitutions may occur. Though we review the report and make efforts to correct it, we do recommend that the report be read carefully in proper context to recognize any text inaccuracies. Dictated by: Fran Wang M.D. on 01/18/2024 at 11:56 Approved by: Fran Wang M.D. on 01/18/2024 at 11:59
== END ==
PROVIDERS: Referring Provider Obstetrics & Gynecology; Visit Provider Obstetrics & Gynecology
DX: O20.0 Threatened abortion (principal); Z3A.09 9 weeks gestation of pregnancy
CPT/HCPCS: 76801; 76817

== ENCOUNTER → 2024-02-02 16:35 | Outpatient (CLI) | payer OTHER, MEDICAID, SELFPAY ==
[2024-02-02 18:21] LABS: Natera Collection Specimen Collected
== END ==
PROVIDERS: Referring Provider Obstetrics & Gynecology; Visit Provider Obstetrics & Gynecology
DX: Z34.01 Encounter for supervision of normal first pregnancy, first trimester (principal); Z3A.11 11 weeks gestation of pregnancy
CPT/HCPCS: 87086

== ENCOUNTER → 2024-03-28 09:38 | Outpatient (CLI) | payer OTHER, MEDICAID, SELFPAY | PROVIDERS: Referring Provider Obstetrics & Gynecology; Visit Provider Obstetrics & Gynecology | DX: Z34.82 Encounter for supervision of other normal pregnancy, second trimester (principal); Z3A.19 19 weeks gestation of pregnancy | CPT/HCPCS: 36415; 82105 ==

== ENCOUNTER → 2024-04-05 06:39 | Outpatient (CLI) | payer OTHER, MEDICAID, SELFPAY ==
--- NOTE | 2024-04-05 06:40 | DI.US.S_ITS ---
PROCEDURE: US OB >= 14 WEEKS FETUS INDICATIONS: anatomy scan OUTSIDE/PRIOR DATING DATA: Last menstrual period (LMP): 12/08/2023 LMP-based estimated date of delivery (DORIS): 09/13/2024 First dating scan (date and location): 01/18/2024 Estimated date of delivery (DORIS) from first dating scan: 08/17/2024 The calculations are made using the working DORIS of 08/19/2024. TECHNIQUE: Real-time scanning was performed of the fetus, with image documentation and biometric measurements. Endovaginal scanning: Not performed COMPARISON: [facility], OB <= 14 WEEKS FETUS, 01/18/2024, 7:02. [facility], OB >= 14 WEEKS FETUS, 11/11/2021, 11:03. FINDINGS: General: A single living intrauterine gestation is present. Presentation: Breech Placenta: Placental position is right anterior /posterior, without previa. Amniotic fluid index: 16.1 cm, normal range is 5-24 cm. Single deepest vertical pocket is 5.2 cm. heart rate: 147 beats per minute. Maternal cervical canal: Closed and measures 4.7 cm long. Normal lower limit is 2.5 cm. biometrics: Biparietal diameter: 5.3 cm, 22 weeks, 0 day. Head circumference: 19.0 cm, 21 weeks, 2 days. Abdominal circumference: 18.3 cm, 23 weeks, 1 day. Femur length: 3.6 cm, 21 weeks, 2 days. Clinically estimated gestational age: 20 weeks, 4 day. Composite gestational age from present scan: 22 weeks, 0 day. Estimated weight and percentile: 485 g, 99%. Anatomic survey: Neuro: Ventricles are non-dilated at less than 10 mm. Cisterna magna is normal at 3-11 mm. Cerebellum is normal in size and morphology. Nuchal skin fold: Normal at less than 6 mm between 14-21 weeks gestational age. Face: Nose and lips, facial profile are normal. Spine: No evidence for spina bifida. Heart: 4-chambered heart is present, with normal right ventricular outflow tract. Left ventricular outflow tract appears prominent in size. Diaphragm: Diaphragm is intact. Stomach: Left-sided stomach is present. Kidneys: No hydronephrosis. Normal is less than 5 mm in 2nd trimester, less than 7 mm in 3rd trimester. Cord: 3-vessel cord has orthotopic insertion. Bladder: Normal in size. Extremities: All 4 extremities identified. IMPRESSION: 1. Single live intrauterine gestation with fetus in breech presentation. heart rate is 147 beats per minute. Normal MIKY at 16.1 cm. 2. No placenta previa. Cervix is closed and measures 4.7 cm in length. Estimated weight is at 99%. 3. Prominent appearance of left ventricular outflow tracts suggest sonographic follow-up. Rest of the anatomic survey is normal. We strive to produce accurate, complete, and clear reports of imaging services. To assist us in improving patient care, this report was composed using standard report templates and voice recognition software. Therefore, it may contain abnormal punctuation, insertions and/or omissions. Occasional wrong-word or sound-alike substitutions may occur. Though we review the report and make efforts to correct it, we do recommend that the report be read carefully in proper context to recognize any text inaccuracies. Dictated by: Richard Lange M.D. on 04/05/2024 at 13:02 Approved by: Richard Lange M.D. on 04/05/2024 at 13:05
== END ==
LOC: US 06:40
PROVIDERS: PCP Obstetrics & Gynecology; Referring Provider Student in an Organized Health Care Education/Training Program; Visit Provider Student in an Organized Health Care Education/Training Program
DX: Z34.02 Encounter for supervision of normal first pregnancy, second trimester (principal); Z3A.22 22 weeks gestation of pregnancy
CPT/HCPCS: 76811

== ENCOUNTER → 2024-05-23 09:08 | Outpatient (CLI) | payer OTHER, MEDICAID, SELFPAY ==
[2024-05-23 11:02] LABS: Hematocrit 36.7 % (36-46); Hemoglobin 12.4 g/dL (12.0-16.0)
[2024-05-23 11:21] LABS: GTT (PREG) 1 Hour PP 50gm Dose 148 mg/dL (76-139)
== END ==
LOC: LAB 09:09
PROVIDERS: Referring Provider Obstetrics & Gynecology; Visit Provider Obstetrics & Gynecology
DX: Z34.82 Encounter for supervision of other normal pregnancy, second trimester (principal); Z3A.26 26 weeks gestation of pregnancy
CPT/HCPCS: 36415; 82950; 85014; 85018

== ENCOUNTER → 2024-06-05 07:44 | Outpatient (CLI) | payer OTHER, SELFPAY ==
[2024-06-05 08:59] LABS: Glucose Fasting Gestational 99 mg/dL (76-95)
[2024-06-05 10:27] LABS: Glucose 1 Hour Gest 147 mg/dL (76-180)
[2024-06-05 11:02] LABS: Glucose 2 Hour Gest 131 mg/dL (76-155)
[2024-06-05 11:02] LABS: Glucose Tol Interp,Gestational INTERPRETATION
[2024-06-05 12:33] LABS: Glucose 3 Hour Gest 132 mg/dL (76-140)
== END ==
LOC: LAB 07:46
PROVIDERS: Referring Provider Obstetrics & Gynecology; Visit Provider Obstetrics & Gynecology
DX: O99.810 Abnormal glucose complicating pregnancy (principal)
CPT/HCPCS: 36415; 82951; 82952

== ENCOUNTER → 2024-07-14 11:54 | Outpatient (CLI) | payer OTHER, SELFPAY ==
--- NOTE | 2024-07-14 11:55 | DI.US.S_ITS ---
PROCEDURE: US OB FOLLOW UP INDICATIONS: LARGE FOR GESTATIONAL AGE OUTSIDE/PRIOR DATING DATA: Last menstrual period (LMP): 12/08/2023 LMP-based estimated date of delivery (DORIS): 09/13/2024 First dating scan (date and location): 01/18/2024 Estimated date of delivery (DORIS) from first dating scan: 08/17/2024 The calculations are made using the clinical provided DORIS of 08/19/2024 TECHNIQUE: Real-time scanning was performed of the fetus, with image documentation and biometric measurements. Endovaginal scanning: Not performed COMPARISON: [facility], OB >= 14 WEEKS FETUS, 04/05/2024, 6:47. FINDINGS: General: A single living intrauterine gestation is present. Presentation: Vertex Placenta: Placental position is right anterior/posterior, without previa. Amniotic fluid index: 17.2 cm, normal range is 5-24 cm. Single deepest vertical pocket is 6.8 cm. heart rate: 149 beats per minute. Maternal cervical canal: 4.2 cm long. Normal lower limit is 2.5 cm. biometrics: Biparietal diameter: 9.8 cm, 40 weeks 2 days Head circumference: 34.7 cm, 40 weeks 1 day Abdominal circumference: 35.8 cm, 39 weeks 5 days Femur length: 7.1 cm, 36 weeks 4 days Clinically estimated gestational age: 34 weeks 6 days Composite gestational age from present scan: 39 weeks 1 day Estimated weight and percentile: 3709 g, greater than 99th percentile Other: Not applicable. IMPRESSION: 1. Single live intrauterine . 2. Estimated growth is greater than the 99th percentile for gestational age. 3. Normal amniotic fluid index at 17.2 cm. Approved by: Luther Gee M.D. on 07/14/2024 at 13:11
== END ==
PROVIDERS: PCP Student in an Organized Health Care Education/Training Program; Referring Provider Obstetrics & Gynecology; Visit Provider Obstetrics & Gynecology
DX: O26.843 Uterine size-date discrepancy, third trimester (principal); Z3A.39 39 weeks gestation of pregnancy
CPT/HCPCS: 76816

== ENCOUNTER → 2024-07-28 11:08 | Outpatient (CLI) | payer OTHER, SELFPAY ==
[2024-07-29 10:10] LABS: Strep Grp B PCR NEG for Grp B Strep
== END ==
PROVIDERS: PCP Student in an Organized Health Care Education/Training Program; Visit Provider Obstetrics & Gynecology
DX: Z34.83 Encounter for supervision of other normal pregnancy, third trimester (principal)
CPT/HCPCS: 87653

== ENCOUNTER 2024-08-16 07:21 | Inpatient (IN) | payer OTHER, SELFPAY ==
--- NOTE | 2024-08-16 08:07 | P.HPOB_ITS ---
OB HPI Date/Time Date of admission: 08/16/24 Date Patient Seen: 08/16/24 Time Patient Seen: 08:08 History of Present Condition Chief complaint: IUP, 39+4 wks, grand multip, Hx PPH, GBS Neg DORIS Calculator 2 Estimated Delivery Date Method Current WG Current Estimate 08/19/24 Ultrasound #1 39w 4d Other Estimates 09/14/24 LMP (Certain) 35w 6d Estimated Gestational Age (weeks): 39+4 : 7 Para: 5 care: good care Dating criteria OB: LMP confirmed by 1st trimester US Ultrasounds: normal 1st trimester US, normal mid trimester US and abnormal US findings (Macrosomia, 99th percentile, 07/11/24, 3709 gms.) Obstetrical complications: none Medical complications OB: none Indications Indication for induction OB: other (Macrosomia, grand multiparity) Preadmission Labs Last OB Lab Results: 2 Blood Type A Positive 08/16/24 08:00 Antibody Screen Negative 08/16/24 08:00 Hct 41.1 % (36-46) 08/16/24 08:00 Hgb 13.7 g/dL (12.0-16.0) 08/16/24 08:00 Hep Bs Antigen Negative s/c (NEGATIVE) 12/27/23 09:47 Hepatitis C Antibody Negative s/c (NEGATIVE) 12/27/23 09:47 HIV 1&2 Ag/Ab, 4th Gen Nonreactive (Nonreactive) 01/05/18 15:5 0 RPR Titer Add Testing Confirmatory testing 06/02/21 15:09 Rubella Antibody 11.3 IU/mL (>15) L 12/27/23 09:47 VZV IgG Antibody 147 index (Immune >165) L 12/27/23 09:47 Glucose 1 Hr 50 gm 148 mg/dL (76-139) H 05/23/24 10:25 Hemoglobin A1c 5.0 % (4.0-6.0) 05/27/22 16:33 Group B Strep (PCR) Neg for grp b strep 07/28/24 11:10 Glucose Tolerance Testing: Fasting (99), 1 hr (147), 2 hr (131) and 3 hr (132) -: Chlamydia screen: negative, Gonorrhea screen: negative and Urine: negative -: PAP smear: Normal Genetic Screens: Cell-free DNA: Normal (Low risk male infant) and Alpha- fetoprotein: Normal External Labs -: Urine: negative Prior (ies) Past Pregnancies Del. Date GA/Weeks Labor Lgth Wt Sex Route Outcome Anesthesia Place Delv Breastfeed Preg Comp Name 02/21/10 41 12 9 lb 4.5 oz Male vaginal live - full t erm epidural [facility], [place], [place] 2 weeks, low supply. post-dates induction Seth 08/21/13 39 23 9 lb 12 oz Male vaginal live - full te rm epidural [place] 2 months none Michael 04/03/16 38 13 9 lb 6.5 oz Female vaginal live - full t erm epidural [facility], Dr. Cagle 6 weeks hemorrhage Kitty 01/21/18 39 5 8 lb 6.5 oz Female vaginal live - full t erm epidural [facility] w Gurjit 3 mos. hemorrhage Alexsandra 12/23/21 39.2 6 8 lb 11.2 oz Male vacuum live - full term epidural [facility] 3 1/2 months other Hiram 05/17/23 11 elective Delivery Date: 02/21/10 Last Updated by: Demi Kent R.N. Induced for post-dates. Passed out after delivery during transfer to PP room. Heavy bleeding controlled with meds/IV fluids, no transfusion. 1st degree tear w repair. Delivery Date: 08/21/13 Last Updated by: Demi Kent R.N. First epidural didn't work. Delivery Date: 04/03/16 Last Updated by: Demi Kent R.N. PPH, controlled with cytotec, did not need transfusion. Delivery Date: 01/21/18 Last Updated by: Demi Kent R.N. Induced, was already dilated 5 cm & pt was uncomfortable. PPH, controlled with meds, did not need transfusion. Delivery Date: 12/23/21 Last Updated by: Veronica Garcia RN 1st trimester bleeding of unknown origin Delivery Date: 05/17/23 Last Updated by: Veronica Garcia RN D&C, no complications Hx # Term Pregnancies: 5 Hx # Pregnancies: 0 Number of Living Children: 5 Multiple births: 0 Spontaneous abortions: 1 Ectopic pregnancies: 0 Elective abortions: 0 Evaluation Evaluation Baseline heart rate: 140 Variability: Moderate (11-25) monitor accelerations: Present Monitor Decelerations: Absent Uterine Contraction Intensity: Mild Category of Tracing: Reactive Status: Category l Dilation (cm): 3 Effacement (%): 80 Dilation: 3-4 cm Effacement: >/=80% station: -2 Position of cervix: mid Consistency: medium Barnhart score: 8 [facility], [facility] Medical History (Updated 07/14/24 @ 13:49 by Jean Paul Rowan MD) Grand multipara RUQ abdominal pain Bleeding in early Left ankle pain Urinary tract infection depression (~2017) Spontaneous vaginal delivery Surgical History [place] teeth extracted (~2001) Anesthesia History of hernia repair (~2018) History of umbilical hernia repair (~2016) Family History (Updated 04/06/23 @ 08:44 by Veronica Garcia RN) Grandfather Lymphoma Grandmother Breast cancer Mother Age: 66 Diabetes mellitus Hypertension Hyperlipidemia Grandmother Cancer of kidney Abdominal hernia Father No problems noted. Grandfather No problems noted. 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[employer].) current occupational exposures/hazards: No special nisha needs: No travel history: over 6 months ago seatbelt use: always water heater temp set < 120 deg: Yes working smoke detector in home: Yes fire extinguisher in home: Yes carbon monox detector in home: Yes firearms in home: No do you feel safe at home: Yes Smoking Status: Never smoker second hand exposure: No alcohol intake: never substance use type: does not use during the past year weight has: remained stable well-balanced diet: daily or most days daily servings fruits/ve or more times/day caffeine: No Type(s) of exercise: walking and other (hiking) frequency: daily duration: 30-45 minutes/day Meds Home Medications and Allergies Home Medications Medication Instructions Recorded Confirmed Type vitamin-ferrous sulfate 1 tab PO 1XD 12/21/23 08/16/24 History 27 mg iron-folic acid 0.8 mg tablet ondansetron HCl 4 mg tablet 4 mg PO Q6H PRN nausea and 01/03/24 08/16/24 Rx vomiting #20 tabs aspirin 81 mg chewable tablet 81 mg PO DAILY #90 tabs 01/31/24 08/16/24 Rx breast pump #1 ea 04/28/24 08/11/24 Rx omeprazole 40 mg capsule,delayed 40 mg PO DAILY #30 caps 06/06/24 08/16/24 Rx release omeprazole 40 mg capsule,delayed 40 mg DAILY 08/16/24 08/16/24 History release Allergies Allergy/AdvReac Type Severity Reaction Status Date / Time Penicillins [PENICILLINS] Allergy Mild HIVES Verified 08/11/24 14:26 OB Exam Vital signs Blood Pressure: 102/67 Pulse Rate: 97 Temperature: 97.2 F HENMT Head: normal to inspection, normocephalic and atraumatic Eyes General: appearance normal, both eyes and all related structures Resp Effort & Inspection: normal respiratory effort and able to speak in complete sentences Auscultation: clear to auscultation bilaterally Cardio Rate: regular rate Rhythm: regular rhythm Heart Sounds: S1 normal, S2 normal and no murmurs Extremities Lower extremity: Yes normal to inspection GI Inspection: normal to inspection Palpation: Yes soft and Yes no hepatosplenomegaly Uterus Location (Fundal Height): 40 Presentation: vertex Estimated Weight (lbs): 9 Objective Labs 08/16/24 08:00 Assessment and Plan Assessment and Plan Assessment and Plan narrative: ASSESSMENT 1. Intrauterine , 39+ 4 weeks gestational age 2. Grand multiparity 3. macrosomia 4. GBS negative status PLAN 1. Admit for induction and delivery 2. See admission orders Time-Based Coding :: [TOTAL MINUTES] spent with patient and on the chart (including review of chart, obtaining history, exam, reviewing outside data, placing orders, documenting exam and treatment plan, and counseling patient) on [DATE].
[2024-08-16 08:29] VITALS: BP 102/67
[2024-08-16 08:40] LABS: Add Manual Diff / Slide Review NO; Basophils Absolute Auto 0 /uL (0-100); Basophils Percent Auto 0.3 % (0-2); Eosinophils Absolute Auto 0 /uL (0-450); Eosinophils Percent Auto 0.3 % (2-4); Hematocrit 41.1 % (36-46); Hemoglobin 13.7 g/dL (12.0-16.0); Lymphocytes Absolute Auto 1600 /uL (1100-4500); Lymphocytes Percent Auto 15.9 % (25-40); Mean Corpuscular HGB Conc 33.4 % (30-36); Mean Corpuscular Volume 89.9 fL (80-100); Monocytes Absolute Auto 700 /uL (0-900); Monocytes Percent Auto 6.9 % (3-14); Neutrophils Absolute Auto 7600 /uL (1500-7000); Neutrophils Percent Auto 76.6 % (50-75); Platelet Count 146 X10^3/uL (150-400); Red Blood Cell Count 4.57 X10^6/uL (4.0-5.2); Red Cell Distribution Width 14.4 % (11.6-14.8); White Blood Cell Count 9.9 X10^3/uL (4.5-11.0)
[2024-08-16] MEDS: LACTATED RINGERS 1,000 ML 100 ML IV (08:49)
[2024-08-16] MEDS: OXYTOCIN PREMIX 30 UNIT/500 ML PLAST..BAG IV (08:58)
[2024-08-16] MEDS: FENT 2MCG/ML BUPIV 0.125% EPI 200 MCG/100 ML PLAST..BAG 8 MCG EPIDURAL (10:51)
--- NOTE | 2024-08-16 11:11 | PM.AN.REGBLK ---
Regional Block Pre-procedure Procedure: Continuous Lumbar Epidural for L&D Attending OB provider: Pam Up PMH/ROS narrative: Healthy here for elective induction of labor, requesting EILEEN for labor pain. PSH/Anesthesia history narrative: Hernia repair, D&C, 5 previously epidurals (only one w/o complication. Per pt two epidurals stopped working, another resulted in a high block, and another 'a needle was left in and then it had to be repeated'. Exam narrative: See pre-anesthesia eval. ASA Class: II Labs: Hct 41.1 % (36-46) 08/16/24 08:00 Plt Count 146 X10^3/uL (150-400) L 08/16/24 08:00 Medications: Current Medications Generic Name Dose Route Start Last Admin Trade Name Freq PRN Reason Stop Dose Admin Carboprost Tromethamine 250 mcg 08/16/24 08:01 Carboprost 250 Mcg/Ml Ampul IM Q90M PRN Bleeding Diphenhydramine HCl 25 mg 08/16/24 11:08 Diphenhydramine 50 Mg/Ml Vial IV 08/17/24 11:08 Q3HR PRN PRURITUS Diphenhydramine HCl 25 mg 08/16/24 11:08 Diphenhydramine 50 Mg/Ml Vial IV Q10M PRN Pruritis Ephedrine Sulfate 10 mg 08/16/24 11:08 Ephedrine 50 Mg/Ml Vial IV Q5M PRN Blood pressure decrease more than 20% of baseline. Fentanyl 50 mcg 08/16/24 08:04 Fentanyl 100 Mcg/2 Ml Inj IV Q1H PRN Pain, Moderate (4-6) Oxytocin/Lactated Ringer's 30 unit in 500 mls @ 200 mls/hr 08/16/24 08:01 Oxytocin Premix IV CONT PRN Bleeding Protocol Tranexamic Acid 1,000 mg/ 100 mls @ 600 mls/hr 08/16/24 08:01 Sodium Chloride IV NOW PRN Bleeding Lactated Ringer's 1,000 mls @ 100 mls/hr 08/16/24 08:15 08/16/24 08:49 Lactated Ringers IV 08/16/24 18:14 100 mls/hr CONT RADHA Administration Oxytocin/Lactated Ringer's 30 unit in 500 mls @ 1 mls/hr 08/16/24 09:00 08/16/24 08:58 Oxytocin Premix IV 2 milliunit/min TITRATE RADHA 2 mls/hr Administration Protocol 1 MILLIUNIT/MIN FENT 2MCG/ML BUPIV 0.125% EPI 200 mcg in 100 mls @ 8 mls/hr 08/16/24 10:56 Fentanyl/Bupiv/Ns 2mcg/Ml - 0.125% EPIDURAL CONT RADHA Lidocaine HCl 20 ml 08/16/24 08:01 Lidocaine 1% 20 Ml INJ INTRA-OP PRN Post Delivery Methylergonovine Maleate 0.2 mg 08/16/24 08:01 Methylergonovine 0.2 Mg Tablet PO Q6HR PRN Heavy Bleeding Methylergonovine Maleate 0.2 mg 08/16/24 08:01 Methylergonovine 0.2 Mg/Ml Vial IM NOW PRN Bleeding Metoclopramide HCl 10 mg 08/16/24 11:08 Metoclopramide 10 Mg/2 Ml Inj IV 08/17/24 11:08 Q4H PRN Nausea Mineral Oil 30 ml 08/16/24 08:01 Mineral Oil 30 Ml Udc TOP PRN PRN Version Misoprostol 800 mcg 08/16/24 08:01 Misoprostol 200 Mcg Tablet MI NOW PRN Bleeding Misoprostol 400 mcg 08/16/24 08:01 Misoprostol 200 Mcg Tablet SL NOW PRN Bleeding Nalbuphine HCl 5 mg 08/16/24 11:08 Nalbuphine 20 Mg/Ml Ampul IV Q6H PRN PRURITIS Nalbuphine HCl 2.5 mg 08/16/24 11:08 Nalbuphine 20 Mg/Ml Ampul IV Q10M PRN Pruritis Naloxone HCl 0.2 mg 08/16/24 08:01 Naloxone 0.4 Mg/Ml Vial IV Q2MIN PRN Opiate Reversal Naloxone HCl 0.4 mg 08/16/24 11:08 Naloxone 0.4 Mg/Ml Vial IV Q2MIN PRN Opiate Reversal Ondansetron HCl 4 mg 08/16/24 08:04 Ondansetron 4 Mg/2 Ml Inj IV Q4HR PRN Nausea And Vomiting Ondansetron HCl 4 mg 08/16/24 11:08 Ondansetron 4 Mg/2 Ml Inj IV 08/17/24 11:08 Q6HR PRN Nausea Oxytocin 10 unit 08/16/24 08:01 Oxytocin 10 Unit/Ml Vial IM NOW PRN Bleeding Allergies: Allergies Allergy/AdvReac Type Severity Reaction Status Date / Time Penicillins [PENICILLINS] Allergy Mild HIVES Verified 08/11/24 14:26 Procedure Insertion date: 08/16/24 Insertion time: 10:51 Prep/Local: 1% lidocaine (3mL to skin. CHG for skin prep.) Interspace: L2/3 Patient position: sitting Needle: 18 gauge Hustead Loss of resistance with: saline SAADIA at (cm): 6 Catheter placed at SKIN (cm): 12 Catheter in SPACE (cm): 6 Insertion: No CSF, No Blood, No Paresthesia with insertion, No Paresthesia with injection and No Test dose reaction Initial Medications TEST DOSE time: 10:53 TEST DOSE: 1.5% lidocaine with epinephrine 1:200k (mL): 3 BOLUS DOSE time: 10:56 BOLUS DOSE (mL): 10 BOLUS DOSE med: other (infusate) Infusion INFUSION: 0.125% bupivacaine and with fentanyl 2 mcg/mL Initial rate (mL/hr): 8 Post-procedure Anesthesia date START: 08/16/24 Anesthesia time START: 10:30 Anesthesia date END: 08/16/24 Anesthesia time END: 17:09 Post-procedure Anesthesia Assessment: Yes CV function: HR/BP stable, Yes Resp function: RR/sat/airway adequate, Yes Post-op hydration adequate, Yes Pain control adequate, Yes Nausea & vomiting absent, Yes Temperature > 36 C, Yes Mental status appropriate and No Anesthesia complications
[2024-08-16 15:46] VITALS: BP 102/67; PULSE 97; TEMP 36.2
--- NOTE | 2024-08-16 15:47 | PM.OBPNLAB ---
Date/Time Date Patient Seen: 08/16/24 Time Patient Seen: 13:10 Pain Control Pain control: epidural Comments: Epidural providing excellent relief; Hyatt in place Pelvic Exam Dilation (cm): 4.5 Effacement (%): 85 station: -1 Amniotic membrane status: Ruptured (1315, clear fluid) Contractions Contractions on admission: irregular Monitor mode: External Pitocin rate (mU/min): 2 Contraction frequency (min): 5 Contraction duration (min): 1 Contraction pattern: Irregular Contraction phase: Resting Contraction intensity: Mild Status status: Category l Heart Rate Baseline: 145 Monitor Accelerations: Present Monitor Decelerations: Absent Monitor Variability: Moderate Assessment and Plan Assessment: induction ongoing Plan: continuous present management Comments: Anticipate
[2024-08-16] MEDS: miSOPROStoL 200 MCG TABLET 800 MCG PR (17:20)
[2024-08-16] MEDS: TRANEXAMIC ACID 1,000 MG in SODIUM CHLORIDE 0.9% 100 ML 600 MG IV (17:22)
--- NOTE | 2024-08-16 17:33 | PM.OBPRVD ---
Events: Other (grandmultip, h/o prior PPH without transfusion) Labor & Delivery Delivery date: 08/16/24 Delivery Time: 17:09 Intrapartal Events: None Cervical ripening method: none Induction method: per pitocin protocol Delivery augmentation: rupture of membranes Delivery monitor: external FHT Route of delivery: L&D Laceration Description: None Estimated blood loss (mL): 200 Anesthesia Type: Epidural Narrative: Pt in dorsal lithotomy position, C/C/+1. Excellent maternal expulsive efforts with rapid descent of station to +4. Delivery of head in MELIDA with immediate restitution to left. Gentle downward traction applied to head with resistance met and shoulder dystocia identified and verbalized to staff. Patient placed in McRobert's and with next push in tandem with repeat gentle downward traction the anterior shoulder was noted to deliver easily. Nuchal cord x1, loose and reduced. Posterior shoulder delivered without difficulty, mother reached down to grasp under bilateral axilla with subsequent delivery of thorax and body. placed on maternal abdomen, vigorous cry following brief stimulation. pitocin initiated. Per pt request delayed cord clamping >3min until cord was no longer pulsing and had blanched. Cord clamped x2 and cut by FOB, 3VC noted. Placenta delivered spontaneously with gentle downward traction, inspected and noted to be intact. Brief period of increased bleeding despite excellent uterine tone, resolved with continued fundal massage. IV TXA and rectal misoprostol administered secondary to h/o maternal PPH. Perineal exam revealed no lacerations. Continued excellent fundal tone with interval exam. Routine care. [place] Baby 1: Infant gender: Male Presentation: vertex Position: Left Occiput Anterior Placenta delivery description: Spontaneous Cord Vessel Description: 3 Vessels, Loose and Reduced score (1 min): 8 score (5 min): 9 Plan for aftercare: Routine care
[2024-08-16] MEDS: LANOLIN OINT 7 GM 1 APPLIC TOP (20:16)
[2024-08-16] MEDS: DERMOPLAST SPRAY 20% 60 ML 1 SPRAY TOP (20:16)
[2024-08-16] MEDS: WITCH HAZEL/GLYCERIN PADS 1 EACH TOP (20:16)
[2024-08-16] MEDS: ACETAMINOPHEN 325 MG TABLET 650 MG PO (21:14)
[2024-08-17] MEDS: IBUPROFEN 600 MG TABLET PO ×3 (00:05→12:52)
[2024-08-17] MEDS: ACETAMINOPHEN 325 MG TABLET 650 MG PO ×2 (03:20→09:00)
--- NOTE | 2024-08-17 15:46 | P.DS_ITS ---
Discharge Providers Provider Date of admission: 08/16/24 07:21 Discharge Date: 08/17/24 Primary care physician: Bertrand King PA-C Consults: 08/16/24 08:01 Consult to Anesthesiology Urgent Comment: Consulting Provider: Jean Paul Rowan Reason for consultation: Epidural Has provider been notified: No 08/17/24 17:30 Consult to Field Logistics Coordinator Routine Comment: Discharge provider: Jean Paul Rowan MD Summary Hospital Course Date Patient Seen: 08/17/24 Time Patient Seen: 15:46 Diagnoses: Intrauterine gestation, 39+ 4 weeks gestational age, delivered by spontaneous vaginal macrosomia Shoulder dystocia Grand multiparity History of hemorrhage without transfusion GBS negative status Hospital Course: Kiya is a 33-year-old 7 now para 6, admitted on the morning of 08/16/2024 for induction at 39+ 4 weeks gestational age. Patient was induced with Pitocin and AROM. She received an epidural in labor and at 5:09 p.m. on the evening of 08/16/2024, delivered spontaneously a viable male with Apgars of 8 and 9. Brief shoulder dystocia was encountered which was easily resolved with Rubén maneuver. Following delivery both baby and mother have done extremely well with the mother experiencing prompt return of bowel and bladder function, she is ambulating independently, tolerating regular diet, and her pain is well relieved with oral pain medications. She will be discharged at this time in an afebrile normotensive condition to home after counseling regarding precautionary symptoms, limitations of activity, medications, and plans for follow-up which will be in 6 weeks. Medications at discharge will include resumption of all preadmission medications and she will use [id number] Tylenol/ibuprofen as needed for pain relief. Peripartum Data Infant Delivery Method: Natural Vaginal Laceration Description: None Episiotomy description: None Procedures: Continuous lumbar epidural Normal spontaneous vaginal delivery complications: none [place] 1: Gender: Male Status at Discharge Cognitive/behavioral status at discharge: oriented Functional status at discharge: independent ambulation Overall status at discharge: patient is progressing back to baseline Time Spent with Patient Time attestation: Total time spent providing and/or coordinating discharge services: Time spent: Less than 30 minutes Objective Labs 08/16/24 08:00 Exam Const General: cooperative and comfortable Nutritional Appearance: average body habitus Orientation: alert and oriented x3 HENMT Head: normal to inspection, atraumatic and abrasion Ears: hearing grossly normal bilaterally Face and sinus: face symmetric Eyes General: appearance normal, both eyes and all related structures Conjunctivae: conjunctivae normal Sclera: sclerae normal EOM: EOM intact bilaterally Neck Neck: normal visual inspection Resp Effort & Inspection: normal respiratory effort and able to speak in complete sentences GI Inspection: normal to inspection Palpation: soft, no hepatosplenomegaly and mass (Fundus U -4, nontender, firm) External Female Exam: other (No significant bleeding noted) Extrem General: no calf tenderness Psych Appearance: grossly normal Mental Status: mental status grossly normal Speech and Movement: speech and movement normal Mood: congruent mood Affect: normal affect Attitude: cooperative Thought Process: normal Thought Content: normal Judgment: judgment good Discharge Plan Discharge Plan Patient Disposition: Home Provider Discharge Comment: Please review the written instructions you received when you were discharged from the hospital. Your follow-up appointment will be scheduled for 6 weeks after delivery and I look forward to seeing you then. If however in the meanwhile, you have any issues, concerns, or questions, please contact me either through the office phone at [phone], or via the patient portal. Discharge orders & Medications Prescriptions: Continued (DME) breast pump Device See Rx Instructions .Route Qty: 1 0RF Rx Instructions: Breast pump as provided per insurance coverage ondansetron HCl 4 mg tablet 4 mg PO Q6H PRN (Reason: nausea and vomiting) Qty: 20 0RF vit-ferrous sulfat-FA 27 mg iron- 0.8 mg tablet 1 tab PO 1XD aspirin 81 mg tablet,chewable 81 mg PO DAILY Qty: 90 3RF omeprazole 40 mg capsule,delayed release(DR/EC) 40 mg PO DAILY Qty: 30 5RF omeprazole 40 mg capsule,delayed release(DR/EC) 40 mg DAILY Follow up/Referrals: Bertrand King PA-C [Primary Care Provider] - Pam Up MD [Physician] - 09/27/24 10:30 am (Please follow up with Dr. Up for your 6 week follow up on Friday September 27, 2024 at 10:30 am. Please arrive at 10:15!) Discharge Health Status Multidrug resistant organism: No MDRO Diet/Activity/Treatments Diet: Diet as Tolerated Activity: As tolerated Other treatments: [id number] Tylenol and/or ibuprofen may be used for pain relief. Kgza-mjj-[id number] stool softeners and/or MiraLax may be used as needed for constipation. Skin/Wound/Dressing Care Report to your healthcare provider any signs of infection, such as:: chills, fever, increased pain, unusual drainage and unusual redness Dressing: N/A Visit Report/Discharge Packet Instructions: DI for Hemorrhage, Depression, Hemorrhage, DI for Labor and Delivery, Vaginal , DI for Depression, DI for and Nipple Soreness Stand Alone Forms: Discharge: Care Discharge Data Primary Care Provider: Bertrand King
== END 2024-08-17 16:27 | disposition home or self-care (01) | DRG 560 ==
PROVIDERS: Obstetrics & Gynecology; Admitting Provider Obstetrics & Gynecology; PCP Student in an Organized Health Care Education/Training Program; Referring Provider Obstetrics & Gynecology; Visit Provider Obstetrics & Gynecology
DX: O35.8XX0 Maternal care for other (suspected) fetal abnormality and damage, not applicable or unspecified (principal); Z3A.39 39 weeks gestation of pregnancy; Z37.0 Single live birth
CPT/HCPCS: 36415; 59050; 85025; 86850; 86900; 86901; G0379; J2590; S0191

== ENCOUNTER → 2024-11-22 16:01 | Outpatient (CLI) | payer OTHER, SELFPAY ==
[2024-11-22 16:42] LABS: Appearance Urine UA CLEAR; Bilirubin Urine UA NEGATIVE (NEGATIVE); Color Urine UA YELLOW; Glucose Urine UA NEGATIVE (Negative); Ketones Urine UA NEGATIVE (NEGATIVE); Leukocyte Esterase Urine UA NEGATIVE (NEGATIVE); Nitrite Urine UA POSITIVE (Negative); Occult Blood Urine UA 2+ (Negative); Protein Urine UA 1+ (Negative); Specific Gravity Urine UA >=1.030 (1.000-1.035); Urobilinogen Urine UA 0.2 E.U./dL (0.2)
[2024-11-22 16:48] LABS: pH Urine UA 5.5 (4.5-8.0)
[2024-11-22 16:50] LABS: Bacteria Urine Many (>30); Culture Indicated Urine Specimen Cultured; RBC Urine 5-10/HPF (0-5/HPF); Squamous Epithelial Cell Urine 1-5 /HPF (0-5/HPF); Urine Volume 10mL (spun); WBC Urine 5-10/HPF (0-5/HPF)
== END ==
LOC: LAB 16:03
PROVIDERS: PCP Student in an Organized Health Care Education/Training Program; Referring Provider Obstetrics & Gynecology; Visit Provider Emergency Medicine
DX: R30.0 Dysuria (principal)
CPT/HCPCS: 81001; 87077; 87086; 87186

== ENCOUNTER → 2025-05-07 17:00 | Outpatient (CLI) | payer OTHER, SELFPAY ==
[2025-05-07 18:53] LABS: HCG Quantitative /Beta subunit < 2.39 mIU/mL
== END ==
PROVIDERS: PCP Student in an Organized Health Care Education/Training Program; Visit Provider Obstetrics & Gynecology
DX: N91.2 Amenorrhea, unspecified (principal)
CPT/HCPCS: 36415; 84702